=== PATIENT | female | born 1960 ===

== ENCOUNTER 2018-01-10 08:44 | Emergency (ER) | payer SELFPAY ==
[2018-01-10 10:23] VITALS: BP 98/65; PULSE 87; RESP 18; TEMP 97.8; O2SAT 95
--- NOTE | 2018-01-10 11:48 | C.PDOC ---
History Of Present Illness 57 y/o female presents to the ER complaining of left foot pain which has been present for the past 4 days. Patient states that she had a CAT scan done today. Patient denies any recent trauma. Of note, patient's left foot is covered in a orthopedic boot. Chief Complaint (Nursing): Lower Extremity Problem/Injury History Per: Patient History/Exam Limitations: no limitations Onset/Duration Of Symptoms: Days Current Symptoms Are (Timing): Still Present Severity: Moderate Past Medical History Reviewed: Historical Data, Nursing Documentation, Vital Signs Vital Signs: Last Vital Signs Temp 97.8 F 01/10/18 10:10 Pulse 87 01/10/18 10:10 Resp 18 01/10/18 10:10 BP 98/65 L 01/10/18 10:10 Pulse Ox 95 01/10/18 12:25 - Medical History PMH: Diabetes, Hypercholesterolemia Denies: Chronic Kidney Disease Other Surgeries: Hx of surgeries Family History: States: No Known Family Hx - Social History Hx Alcohol Use: No Hx Substance Use: No - Immunization History Hx Tetanus Toxoid Vaccination: No Hx Influenza Vaccination: No Hx Pneumococcal Vaccination: No Review Of Systems Except As Marked, All Systems Reviewed And Found Negative. Musculoskeletal: Positive for: Foot Pain (left foot pain) Neurological: Negative for: Weakness, Numbness Physical Exam - Physical Exam Appears: Non-toxic, No Acute Distress Skin: Normal Color, Warm Head: Atraumatic, Normacephalic Eye(s): bilateral: Normal Inspection Oral Mucosa: Moist Neck: Supple Chest: Symmetrical Extremity: No Normal ROM (decreased ROM in left foot), Other (Left Foot: 4th and 5th toes amputated,prominent lateral malleolus, well- healing surgical scar) Neurological/Psych: Oriented x3, Normal Speech, Normal Motor, Normal Sensation ED Course And Treatment O2 Sat by Pulse Oximetry: 95 (RA) Pulse Ox Interpretation: Normal Progress Note: Case discussed with podiatry resident. Podiatry Resident will see patient in office during the afternoon today. Patient understands that she has to follow up with Podiatry Resident. Disposition - Disposition Referrals: [facility] [Outside] [facility] [Outside] Disposition: HOME/ ROUTINE Disposition Time: 09:30 Condition: GOOD Additional Instructions: Thank you for letting us take care of you today. The emergency medical care you received today was directed at your acute symptoms. If you were prescribed any medication, please fill it and take as directed. It may take several days for your symptoms to resolve. Return to the Emergency Department if your symptoms worsen, do not improve, or if you have any other problems. Please contact your doctor or call one of the physicians/clinics you have been referred to that are listed on the Patient Visit Information form that is included in your discharge packet. Bring any paperwork you were given at discharge with you along with any medications you are taking to your follow up visit. Our treatment cannot replace ongoing medical care by a primary care provider (PCP) outside of the emergency department. Thank you for allowing the [facility] team to be part of your care today. Follow up with the clinic today at 12:30pm for a follow up appointment. Cam por dejarnos atenderlo hoy. La atencin mdica de emergencia que recibi hoy estaba dirigida a micaela sntomas agudos. Si le prescribieron algn medicamento, llnelo y tome segn las indicaciones. Micaela sntomas pueden tardar varios bardales en resolverse. Regrese al Departamento de Emergencia si micaela s ntomas empeoran, no mejoran o si tiene algn otro problema. Comunquese con mckeon mdico o llame a dev de los mdicos / clnicas a los que castanon sido referido que figura en el formulario de Informacin de visita del paciente que se incluye en mckeon paquete de gwendolyn. Traiga todos los documentos que recibi al momento del gwendolyn junto con los medicamentos que est tomando en mckeon visita de seguimiento. Nuestro tratamiento no puede reemplazar la atencin mdica en curso por parte de un proveedor de atencin primaria (PCP) fuera del departamento de emergencias. Cam por permitir que el equipo de [facility] sea parte de mckeon cuidado hoy. Uvaldo un seguimiento con la clnica hoy a las 12:30 p. M. Para camilo marlene de seguimiento. Instructions: Swollen Joint (ED) Forms: Gen Discharge Inst Mohawk Print Language: SINHALA - Clinical Impression Clinical Impression: Joint pain - Scribe Statement The provider has reviewed the documentation as recorded by the Scribe Anoop Hung Provider Attestation: All medical record entries made by the Scribe were at my direction and personally dictated by me. I have reviewed the chart and agree that the record accurately reflects my personal performance of the history, physical exam, medical decision making, and the department course for this patient. I have also personally directed, reviewed, and agree with the discharge instructions and disposition.
== END 2018-01-10 10:10 | disposition home or self-care (01) ==
LOC: C.ER 08:44
DX: M25.572 Pain in left ankle and joints of left foot (principal)

== ENCOUNTER 2018-07-03 13:06 | Emergency (ER) | payer SELFPAY ==
[2018-07-03 13:06] VITALS: BMI 25.4
[2018-07-03 13:21] VITALS: TEMP 98.5
[2018-07-03] MEDS ORDERED: Sodium Chloride 0.9% 1,000 ML IV ONE (14:04)
[2018-07-03 14:21] LABS: BASO # 0.1 K/uL (0.0-0.2); BASO % 0.7 % (0.0-2.0); EOS # 0.1 K/uL (0.0-0.7); EOS % 0.7 % (0.0-4.0); HEMOGLOBIN 10.9 g/dL (11.0-16.0); LYMPH # 2.4 K/uL (1.0-4.3); LYMPH % 31.1 % (20.0-40.0); MEAN CELL VOLUME 88.9 fL (81.0-99.0); MEAN CORPUSCULAR HEMOGLOBIN 29.7 pg (27.0-31.0); MEAN CORPUSCULAR HGB CONC 33.4 g/dL (33.0-37.0); MEAN PLATELET VOLUME 9.7 fL (7.2-11.7); MONO # 0.5 K/uL (0.0-0.8); MONO % 6.9 % (0.0-10.0); NEUT # 4.7 K/uL (1.8-7.0); NEUT % 60.6 % (50.0-75.0); RBC 3.66 Mil/uL (3.80-5.20); RED CELL DISTRIBUTION WIDTH 13.6 % (11.5-14.5); WHITE BLOOD COUNT 7.8 K/uL (4.8-10.8)
[2018-07-03 14:34] LABS: ALB/GLOB RATIO 1.2 (1.0-2.1); ALBUMIN 4.4 g/dL (3.5-5.0); ALT/SGPT 144 U/L (9-52); AST/SGOT 61 U/L (14-36); BLOOD UREA NITROGEN 29 mg/dL (7-17); CALCIUM 9.6 mg/dl (8.6-10.4); GFR AFRICAN-AMERICAN > 60; GFR NON-AFRICAN AMERICAN > 60
--- NOTE | 2018-07-03 14:34 | C.PDOC ---
History Of Present Illness 58 year old female presents to ED for evaluation of smelling and pain to right foot for the past week. As per daughter wound on the right foot started to drain 3 days ago. Denies fever, or associated symptoms. Time Seen by Provider: 07/03/18 13:45 Chief Complaint (Nursing): Lower Extremity Problem/Injury History Per: Patient History/Exam Limitations: no limitations Onset/Duration Of Symptoms: Days Current Symptoms Are (Timing): Still Present Recent travel outside of the [place]: No Additional History Per: Patient Past Medical History Reviewed: Historical Data, Nursing Documentation, Vital Signs Vital Signs: Last Vital Signs Temp 98.5 F 07/03/18 13:17 Pulse 83 07/03/18 17:23 Resp 18 07/03/18 17:23 BP 123/75 07/03/18 17:23 Pulse Ox 96 07/03/18 17:23 - Medical History PMH: Diabetes, HTN, Hypercholesterolemia Denies: Chronic Kidney Disease Family History: States: Unknown Family Hx - Social History Hx Alcohol Use: No Hx Substance Use: No - Immunization History Hx Tetanus Toxoid Vaccination: No Hx Influenza Vaccination: No Hx Pneumococcal Vaccination: No Review Of Systems Except As Marked, All Systems Reviewed And Found Negative. Constitutional: Negative for: Fever, Chills Musculoskeletal: Positive for: Foot Pain (right) Neurological: Negative for: Weakness, Numbness Physical Exam - Physical Exam Appears: Non-toxic, No Acute Distress (comfortable) Skin: Warm, Dry, Other (2 x 1cm of superficial wound to right foot with purulent drainage, surrounding swelling, erythema, and tactile warmth) Head: Atraumatic, Normacephalic Eye(s): bilateral: Normal Inspection Oral Mucosa: Moist Neck: Normal ROM, Supple Cardiovascular: Rhythm Regular, No Murmur Respiratory: Normal Breath Sounds, No Rales, No Rhonchi, No Wheezing Gastrointestinal/Abdominal: Soft, No Tenderness Extremity: Normal ROM, No Calf Tenderness, Capillary Refill (less than 2 seconds ), Deformity (deformity to left ankle from prior fracture; right foot deformity) , Other (amputation to right 4th and 5th metatarsals) Pulses: Left Dorsalis Pedis: Normal, Right Dorsalis Pedis: Normal Neurological/Psych: Oriented x3, Normal Speech ED Course And Treatment - Laboratory Results Result Diagrams: 07/03/18 14:15 07/03/18 14:15 O2 Sat by Pulse Oximetry: 100 (RA) Pulse Ox Interpretation: Normal Medical Decision Making Medical Decision Making: Impression: 58 year old female with draining right foot wound. Plan: * Blood work * Urinalysis * Right foot Xray * IV fluids 14:33: spoke to podiatry resident who will come evaluate patient at bedside. 1740 As per podiatry, patient to be given dose of antibiotics IV in ED and then follow up in the clinic next week. The resident debrided the wound, irrigated and dressed the wound. Disposition Counseled Patient/Family Regarding: Diagnosis, Need For Followup - Disposition Referrals: [facility] [Outside] [facility] [Other] Disposition: HOME/ ROUTINE Disposition Time: 17:15 Condition: STABLE Additional Instructions: ir a la clnica el lunmaria c para erik podologa DR Belle frank antibiticos dos veces al da Prescriptions: Cephalexin [cephalexin] 500 mg PO Q12 #14 cap Instructions: Diabetic Foot Care (ED) Print Language: BENGALI - POA Present On Arrival: Poor Glycemic Control - Clinical Impression Clinical Impression: Diabetic foot ulcer - 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 - Scribe Statement The provider has reviewed the documentation as recorded by the Shoshana Levy All medical record entries made by the Shoshana were at my direction and personally dictated by me. I have reviewed the chart and agree that the record accurately reflects my personal performance of the history, physical exam, medical decision making, and the department course for this patient. I have also personally directed, reviewed, and agree with the discharge instructions and disposition.
--- NOTE | 2018-07-03 14:55 | RAD ---
Date of service: 07/03/2018 PROCEDURE: Right Foot Radiographs. HISTORY: infected ulcer of foot COMPARISON: Bilateral feet radiographs 01/03/2018. FINDINGS: BONES: Prior trans metatarsal amputation at the 4th and 5th positions is reiterated with diffuse osteopenia suggesting osteoporosis. 2 orthopedic screws are unchanged at the distal tibia and fibula as well as transfixing the fibula to the talus. Gross degenerative changes are again seen throughout the midfoot and hindfoot with chronic fractures evident. No overt pattern to suggest osteomyelitis. Diffuse osteopenia suggests osteoporosis. JOINTS: As above. SOFT TISSUES: Deformity at the lateral mid and forefoot status post right 4th and 5th transmetatarsal amputations reiterated. Indentation at the plantar and lateral foot soft tissues may be postoperative or from the reported ulcer. No suspicious local erosive bony findings at this site. OTHER FINDINGS: None. IMPRESSION: No overt pattern to suggest osteomyelitis. Prior 4th and 5th transmetatarsal amputations reiterated with postop changes again seen throughout right ankle once again. Chronic fractures are again reiterated throughout the hindfoot with gross degenerative changes associated throughout the hindfoot and midfoot and joints.
--- NOTE | 2018-07-03 15:20 | CP.PCM.CON ---
History of Present Illness - History of Present Illness History of Present Illness: Podiatry Consult Note- Dr. Belle 58F with PMH of DM presents to the ED for worsening right foot pain and swelling. Reports noticing increase in pain and swelling for the last 3 days. Pain is worse with ambulating. Patient reports pain being localized to the right forefoot. Reports having pain to the left ankle as well. Report she has a left ankle fracture (for over 1 year) and will be undergoing surgery by Dr. Belle mid June pending medical clearance. Patient instructed to limit walking to the left ankle in CAM boot. Patient denies nausea, fever, shortness of breath, chest pains or chills. PMH: DM PSH: right foot 4th and 5th partial ray resection secondary to OM, C -section SH: denies smoking, drinking, or illicit drug use ALL: NKDA MEDS: see medication list FH: father- DM, mother- denies Past Patient History - Tetanus Immunizations Tetanus Immunization: Unknown - Past Medical History & Family History Past Medical History?: Yes - Past Social History Smoking Status: Never Smoked - CARDIAC Hx Hypercholesterolemia: Yes Hx Hypertension: Yes - PULMONARY Hx Respiratory Disorders: No - NEUROLOGICAL Hx Neurological Disorder: No - HEENT Hx HEENT Problems: No - RENAL Hx Chronic Kidney Disease: No - ENDOCRINE/METABOLIC Hx Endocrine Disorders: Yes Hx Diabetes Mellitus Type 2: Yes - HEMATOLOGICAL/ONCOLOGICAL Hx Blood Disorders: No - INTEGUMENTARY Hx Dermatological Problems: No - MUSCULOSKELETAL/RHEUMATOLOGICAL Hx Musculoskeletal Disorders: No Hx Falls: No - GASTROINTESTINAL Hx Gastrointestinal Disorders: No - GENITOURINARY/GYNECOLOGICAL Hx Genitourinary Disorders: No - PSYCHIATRIC Hx Substance Use: No - SURGICAL HISTORY Hx Surgeries: Yes Hx Orthopedic Surgery: Yes Other/Comment: rt foot sx. - ANESTHESIA Hx Anesthesia: Yes Meds Home Medications: Home Medication List Medication Instructions Recorded Confirmed Type Cephalexin [cephalexin] 500 mg PO Q12 #14 cap 07/03/18 Rx Allergies/Adverse Reactions: Allergies Allergy/AdvReac Type Severity Reaction Status Date / Time No Known Allergies Allergy Verified 07/03/18 13:17 Physical Exam - Constitutional Appears: Well, Non-toxic, No Acute Distress - Extremities Exam Extremities exam: Negative for: calf tenderness Additional comments: VASC: DP and PT 2/4 bilaterally, CFT < 3 seconds x 8 digits, temperature gradient bilaterally warm to warm, right foot swelling, left ankle swelling ORTHO: pain with palpation to 3rd plantar sub met pain right foot, right foot s/ p 4th and 5th partial ray amputation secondary to OM- completely healed, left ankle pain secondary to ankle fracture NEURO: gross and protective sensation intact DERM: callus with likely underlying ulceration noted to sub met 3 right foot, mild fluctanance appreciate, slight erythema, no streaking, serous drainage; callus noted to the lateral aspect of midfoot left lower extremity no open ulceration Results - Vital Signs Recent Vital Signs: Last Vital Signs Temp 98.5 F 07/03/18 13:17 Pulse 82 07/03/18 13:17 Resp 16 07/03/18 13:17 BP 126/78 07/03/18 13:17 Pulse Ox 100 07/03/18 14:58 - Labs Result Diagrams: 07/03/18 14:15 07/03/18 14:15 Labs: Laboratory Results - last 24 hr 07/03/18 07/03/18 14:15 14:15 WBC 7.8 RBC 3.66 L Hgb 10.9 L Hct 32.6 L MCV 88.9 MCH 29.7 MCHC 33.4 RDW 13.6 Plt Count 230 MPV 9.7 Neut % (Auto) 60.6 Lymph % (Auto) 31.1 [place] % (Auto) 6.9 Eos % (Auto) 0.7 Baso % (Auto) 0.7 Neut # (Auto) 4.7 Lymph # (Auto) 2.4 [place] # (Auto) 0.5 Eos # (Auto) 0.1 Baso # (Auto) 0.1 Sodium 139 Potassium 5.1 Chloride 104 Carbon Dioxide 26 Anion Gap 14 BUN 29 H Creatinine 0.6 L Est GFR ( Amer) > 60 Est GFR (Non-Af Amer) > 60 Random Glucose 253 H Calcium 9.6 Total Bilirubin 0.6 AST 61 H D ALT 144 H D Alkaline Phosphatase 348 H D Total Protein 8.0 Albumin 4.4 Globulin 3.6 Albumin/Globulin Ratio 1.2 Assessment & Plan - Assessment and Plan (Free Text) Assessment: 58F with PMH of DM with left sub met 3 callus with underlying ulceration and early cellulitic changes Plan: Patient seen and examined Discussed plan in detail with attending Dr. Belle X-rays reviewed- no OM, no gas emphysema appreciated Cleansed right foot with betadine Debrided right foot sub met 3 callus with a #15 blade and a pickup of all nonviable tissue at the level of dermis layer, revealing underlying ulceration. Post ulceration measures approximately 2 cm in diameter x .1 depth, does not probe to bone or tendon. Wound base is granular with serous drainge. Patient tolerated the procedure well without incident Cleansed ulceration with copious amounts of saline mixed betadine Wound culture taken of right foot Recommends outpatient abx Patient may WBAT to the heel to the right foot Continue to wear CAM walker to left lower extremity Patient to be NWB to the left lower extremity in CAM walker. Limit walking to the left lower extremity Educated patient on worsening signs and symptoms, and to seek help immediately if present Patient will follow up in podiatry clinic with Dr. Belle Wednesday Thank you for allowing us to participate in patient's care
[2018-07-03 15:52] LABS: URINE BILIRUBIN NEGATIVE (NEGATIVE); URINE BLOOD NEGATIVE (NEGATIVE); URINE CLARITY Clear (Clear); URINE COLOR Straw (YELLOW); URINE GLUCOSE (UA) 3+ mg/dL (Normal); URINE LEUKOCYTE ESTERASE NEG Leu/uL (Negative); URINE PROTEIN NEGATIVE (NEGATIVE); URINE UROBILINOGEN NORMAL mg/dL (0.2-1.0)
[2018-07-03] MEDS ORDERED: cefTRIAXone IV 1 gm in Dextros 50 ML IV ONE (16:39)
[2018-07-03] MEDS ORDERED: cefTRIAXone IV 1 gm in Dextros 50 ML IVPB ONE (16:45)
[2018-07-03 17:23] VITALS: BP 123/75; PULSE 83; RESP 18
[2018-07-03 17:36] VITALS: O2SAT 100
== END 2018-07-03 17:39 | disposition home or self-care (01) ==
LOC: C.ER 13:06
DX: E11.621 Type 2 diabetes mellitus with foot ulcer (principal); L97.519 Non-pressure chronic ulcer of other part of right foot with unspecified severity; I10 Essential (primary) hypertension; E78.00 Pure hypercholesterolemia, unspecified

== ENCOUNTER 2018-08-29 07:08 | Inpatient (IN) | payer MEDICAID, SELFPAY ==
[2018-08-25 09:20] VITALS: BMI 23.2
[2018-08-29] MEDS ORDERED: Clindamycin 600mg/50ml NS 0 MG/0 ML BAG IVPB ONE (08:02)
[2018-08-29] MEDS ORDERED: Clindamycin 600mg/50ml NS 600 MG/50 ML BAG IVPB ONE (08:03)
[2018-08-29] MEDS ORDERED: Midazolam 2 MG/2 ML VIAL ONE (08:18)
[2018-08-29] MEDS ORDERED: Propofol 10 mg/ml Inj (20 ML) ONE (08:18)
[2018-08-29] MEDS ORDERED: Morphine 4 MG/ML VIAL ONE (13:03)
[2018-08-29] MEDS ORDERED: Absorbable Gelatin Sponge Size 12-7 ONE (13:17)
[2018-08-29] MEDS ORDERED: Bupivacaine 0.25% 20 ML INJ IJ ONE ×2 (13:46→14:16)
[2018-08-29] MEDS ORDERED: HYDROmorphone 0.5 mg/0.5 ml ISec IVP PRN (13:52)
[2018-08-29] MEDS ORDERED: Oxycodone/Acetaminophen 5/325 mg Tab PO PRN ×2 (14:03)
--- NOTE | 2018-08-29 14:09 | PCM.SURG1 ---
Surgeon's Initial Post Op Note - Surgeon's Notes Surgeon: Dr. Belle Java Web Architect: Dr. Zak Forman PGY-3, Dr. Isaac Dominguez PGY-3. Dr. Shamika Orellana PGY-3 Type of Anesthesia: General Endo, Block Regional, Local Anesthesia Administered By: Dr. 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
[2018-08-29] MEDS ORDERED: Trimethobenzamide 200 mg/2 mL Inj IM STA (14:11)
--- NOTE | 2018-08-29 14:58 | PCM.ANESB2 ---
Popliteal Nerve Block - Popliteal Nerve Block Date of Procedure: 08/29/18 Anesthesiologist: Chelly Pre-Procedure Diagnosis: M19.072 Post-Procedure Diagnosis: M19.072 Procedure Performed: Popliteal Nerve Block Left - Procedure Popliteal Nerve Block: This procedure was explained to the patient that it is for post-operative pain management. Consent was obtained after a thorough discussion with the patient regarding the benefits and possible complications of local anesthetic block of the sciatic nerve at the popliteal level. The patient was brought to the operating room and standard monitors are applied. Time-out was held with the circulating nurse to confirm the correct surgery and the appropriate block. After applying oxygen by nasal cannula and administering IV Sedation, patient's operative leg was gently raised and supported and the groove in between the biceps femoris and vastus lateralis muscles was carefully palpated. The skin approximately 8cm above the popliteal crease was then marked. The ultrasound transducer was then applied to the posterior thigh approximately 8cm above the popliteal crease in the transverse plane and the sciatic nerve before its division was visualized lateral to the popliteal artery and in between the bicep femoris and semimembranosus/semitendinosus muscles. After identification, the lateral portion of the thigh was prepped with Betadine solution three times and Lidocaine 1% was injected subcutaneously for topical anesthesia. At this point, a # 21 gauge Stimuplex insulated 4 inch needle was inserted into pre-marked area and advanced in a perpendicular direction. After repeated negative aspiration, _20_cc of _0.25 % _bupivicaine__ was injected . Under ultrasound guidance the local anesthetics were observed surrounding sciatic nerve . The needle was removed intact and sterile dressing was applied. The patient tolerated the popliteal nerve block well with stable vital signs.
--- NOTE | 2018-08-29 16:13 | RAD ---
Date of service: 08/29/2018 PROCEDURE: Intraoperative Fluoroscopy. HISTORY: Left ankle fracture. NON-UNION FINDINGS: Fluoroscopic assistance was provided for left ankle open reduction internal fixation. Please refer to the operative report from JILLIAN Babcock.
--- NOTE | 2018-08-29 16:25 | RAD ---
Date of service: 08/29/2018 PROCEDURE: Left Ankle Radiographs. HISTORY: s/p left ankle surgery COMPARISON: 07/03/2018. FINDINGS: BONES: Hardware revision related to arthrodesis. No evidence of hardware failure. JOINTS: Normal. No osteoarthritis. Ankle mortise maintained. Talar dome intact SOFT TISSUES: Normal. OTHER FINDINGS: None. IMPRESSION: Satisfactory postoperative status.
[2018-08-29] MEDS ORDERED: Glucagon Recombinant 1 mg Inj IM PRN (17:43)
[2018-08-29] MEDS ORDERED: Dextrose 50% SYRINGE Inj (50 ml) IV PRN (17:43)
--- NOTE | 2018-08-29 17:56 | CP.PCM.HP ---
<Asher Martell - Last Filed: 08/29/18 20:29> History of Present Illness - History of Present Illness History of Present Illness: PGY2 Medicine H+P for Dr. Dickey (History obtained by chart review due to patient's clinical condition) Patient is a 58 female with a past medical history of arthritis, hyperlipidemia, hypertension and insulin-dependent diabetes who is s/p left ankle fusion. Patien t is currently post-op and unable to provide history due to anesthesia. Podiatry requested overnight observation. ROS unattainable due to to patient's clinical condition. PMD: Dr. Arroyo (per Podiatry team) PMH: arthritis, hyperlipidemia, hypertension and insulin-dependent diabetes PSH: left ankle fusion Present on Admission - Present on Admission Any Indicators Present on Admission: No Review of Systems - Review of Systems Systems not reviewed;Unavailable: Altered Mental Status (post-op) Past Patient History - Tetanus Immunizations Tetanus Immunization: Unknown - Past Medical History & Family History Past Medical History?: Yes - Past Social History Smoking Status: Never Smoked - CARDIAC Hx Hypercholesterolemia: Yes (no longer) Hx Hypertension: Yes (no longer) - PULMONARY Hx Respiratory Disorders: No - NEUROLOGICAL Hx Neurological Disorder: No - HEENT Hx HEENT Problems: No - RENAL Hx Chronic Kidney Disease: No - ENDOCRINE/METABOLIC Hx Endocrine Disorders: Yes Hx Diabetes Mellitus Type 2: Yes Hx Hypothyroidism: Yes - HEMATOLOGICAL/ONCOLOGICAL Hx Blood Disorders: Yes Hx Anemia: Yes Hx Blood Transfusions: Yes Hx Blood Transfusion Reaction: No - INTEGUMENTARY Hx Dermatological Problems: No - MUSCULOSKELETAL/RHEUMATOLOGICAL Hx Musculoskeletal Disorders: Yes Hx Arthritis: Yes Hx Falls: No Hx Fractures: Yes (right) - GASTROINTESTINAL Hx Gastrointestinal Disorders: No - GENITOURINARY/GYNECOLOGICAL Hx Genitourinary Disorders: No - PSYCHIATRIC Hx Psychophysiologic Disorder: No Hx Substance Use: No - SURGICAL HISTORY Hx Surgeries: Yes 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) Hx Open Reduction Internal Fixation: Yes (right ankle) - ANESTHESIA Hx Anesthesia: Yes Hx Anesthesia Reactions: Yes (nausea) Hx Malignant Hyperthermia: No Has any member of the family had a problem w/ anesthesia?: No Meds Allergies/Adverse Reactions: Allergies Allergy/AdvReac Type Severity Reaction Status Date / Time morphine Allergy Intermediate VOMITING Verified 08/29/18 19:58 cephalexin [From Keflex] Allergy Mild RASH Verified 08/08/18 18:43 acetaminophen [From Percocet] AdvReac Intermediate VOMITING Verified 08/29/18 19:58 oxycodone [From Percocet] AdvReac Intermediate VOMITING Verified 08/29/18 19:58 Physical Exam - Constitutional Appears: Other (Unarousable - post op) - Head Exam Head Exam: ATRAUMATIC, NORMOCEPHALIC - ENT Exam ENT Exam: Mucous Membranes Moist. absent: Mucous Membranes Dry - Respiratory Exam Respiratory Exam: Clear to Auscultation Bilateral, NORMAL BREATHING PATTERN. absent: Accessory Muscle Use, Rales, Rhonchi, Wheezes, Respiratory Distress - Cardiovascular Exam Cardiovascular Exam: REGULAR RHYTHM, +S1, +S2 - GI/Abdominal Exam GI & Abdominal Exam: Soft. absent: Distended, Firm, Guarding, Rigid, Tenderness - Extremities Exam Extremities exam: Negative for: calf tenderness, pedal edema Additional comments: Left ankle/lower extremity wrapped. - Back Exam Back exam: CVA tenderness (R) - Neurological Exam Neurological exam: Altered (post-op, has not fully recovered from anesthesia) - Skin Skin Exam: Dry, Warm Results - Vital Signs Recent Vital Signs: Last Vital Signs Temp 98 F 08/29/18 14:01 Pulse 89 08/29/18 16:00 Resp 10 L 08/29/18 16:00 BP 144/68 08/29/18 16:00 Pulse Ox 99 08/29/18 16:00 - Labs Labs: Laboratory Results - last 24 hr 08/29/18 08/29/18 07:55 14:06 POC Glucose (mg/dL) 136 H 172 H Assessment & Plan - Assessment and Plan (Free Text) Plan: s/p Left Ankle Fusion POD#0 Podiatry consulted, Dr. Belle * Requested overnight observation. * Patient underwent - arthrodesis of left ankle joint using plate and screws with bone allograft Continue to monitor Pain control NON-weight bearing activity Medications: * Percocet 1 tab q4h prn * Percocet 2 tab q4h prn * Zofran 4mg IVP q6h prn * Tylenol 650mg PO q6h prn Hypertension Continue Home Medication: * Enalapril Maleate 2.5mg PO daily * Aspirin 81mg PO daily Diabetes Inulin Sliding Scale Hypoglycemic Protocol Hypothyroidism Continue Home Medication: * Synthroid 75mcg PO daily DISPO: Will monitor patient overnight. Hopeful discharge tomorrow if cleared by podiatry. Case discussed with Dr. Keli Alvarezn PGY2 <Herman Dickey H - Last Filed: 08/30/18 07:37> Results - Vital Signs Recent Vital Signs: Last Vital Signs Temp 98.9 F 08/30/18 05:00 Pulse 109 H 08/30/18 00:00 Resp 20 08/30/18 00:00 BP 135/73 08/30/18 00:00 Pulse Ox 100 08/30/18 00:00 - Labs Result Diagrams: 08/30/18 06:55 Labs: Laboratory Results - last 24 hr 08/29/18 08/29/18 08/29/18 07:55 14:06 19:31 WBC RBC Hgb Hct MCV MCH MCHC RDW Plt Count MPV Neut % (Auto) Lymph % (Auto) [place] % (Auto) Eos % (Auto) Baso % (Auto) Neut # (Auto) Lymph # (Auto) [place] # (Auto) Eos # (Auto) Baso # (Auto) POC Glucose (mg/dL) 136 H 172 H 255 H 08/29/18 08/30/18 08/30/18 20:58 06:55 07:26 WBC 10.5 RBC 3.05 L Hgb 9.3 L Hct 26.8 L MCV 87.6 MCH 30.4 MCHC 34.6 RDW 12.9 Plt Count 223 MPV 9.2 Neut % (Auto) 76.3 H Lymph % (Auto) 14.4 L [place] % (Auto) 8.8 Eos % (Auto) 0.0 Baso % (Auto) 0.5 Neut # (Auto) 8.0 H Lymph # (Auto) 1.5 [place] # (Auto) 0.9 H Eos # (Auto) 0.0 Baso # (Auto) 0.0 POC Glucose (mg/dL) 247 H 266 H Attending/Attestation - Attestation I have personally seen and examined this patient.: Yes I have fully participated in the care of the patient.: Yes I have reviewed all pertinent clinical information: Yes Notes (Text): 08/30/18 07:33 Medical attending : Patient was seen and examined by me, agree with the above note by the resident. The patient had just recently come out of the OR and was in PACU when we saw her and sound asleep laura from anesthesia. Patient is S/P ankle fusion. Per discussion with the podiatry resident the patient should be non-weight bearing and can have lovenox as well Herman Dickey
[2018-08-29] MEDS: (Novolin R) Insulin Human Regular 100 units/ml vial SC SCH (22:10)
[2018-08-30] MEDS: Levothyroxine 75 MCG TAB PO SCH (06:47)
[2018-08-30 07:21] LABS: BASO % 0.5 % (0.0-2.0); HEMOGLOBIN 9.3 g/dL (11.0-16.0); LYMPH # 1.5 K/uL (1.0-4.3); LYMPH % 14.4 % (20.0-40.0); MEAN CELL VOLUME 87.6 fL (81.0-99.0); MEAN CORPUSCULAR HEMOGLOBIN 30.4 pg (27.0-31.0); MEAN CORPUSCULAR HGB CONC 34.6 g/dL (33.0-37.0); MEAN PLATELET VOLUME 9.2 fL (7.2-11.7); MONO # 0.9 K/uL (0.0-0.8); MONO % 8.8 % (0.0-10.0); NEUT % 76.3 % (50.0-75.0); RBC 3.05 Mil/uL (3.80-5.20); RED CELL DISTRIBUTION WIDTH 12.9 % (11.5-14.5); WHITE BLOOD COUNT 10.5 K/uL (4.8-10.8)
[2018-08-30 07:44] LABS: ALBUMIN 3.7 g/dL (3.5-5.0); ALT/SGPT 35 U/L (9-52); AST/SGOT 32 U/L (14-36); BLOOD UREA NITROGEN 14 mg/dL (7-17); CALCIUM 8.9 mg/dl (8.6-10.4); GFR NON-AFRICAN AMERICAN > 60
[2018-08-30] MEDS: (Novolin R) Insulin Human Regular 100 units/ml vial SC SCH ×4 (08:28→21:37)
[2018-08-30] MEDS: Pneumococcal 23-Valent Vaccine IM ONE ×2 (09:35→09:50)
--- NOTE | 2018-08-30 11:07 | CP.PCM.CON ---
History of Present Illness - History of Present Illness History of Present Illness: Podiatry - Dr. 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 Patient resting in bed at time of visit, NAD. Patient complains of left ankle pain along surgical site however improved since overnight, controlled with pain medications. Patient aware she will be working with physical therapy for transfer training for safe discharge home. Patient also c/o nausea and a headache and is requesting medications for alleviation of symptoms. Patient denies left calf pain, SOB, abd pain, chest pain, n/v/d, f/c. Review of Systems - Review of Systems All systems: reviewed and no additional remarkable complaints except (as per HPI) Past Patient History - Tetanus Immunizations Tetanus Immunization: Unknown - Past Medical History & Family History Past Medical History?: Yes - Past Social History Smoking Status: Never Smoked - CARDIAC Hx Hypercholesterolemia: Yes (no longer) Hx Hypertension: Yes (no longer) - PULMONARY Hx Respiratory Disorders: No - NEUROLOGICAL Hx Neurological Disorder: No - HEENT Hx HEENT Problems: No - RENAL Hx Chronic Kidney Disease: No - ENDOCRINE/METABOLIC Hx Endocrine Disorders: Yes Hx Diabetes Mellitus Type 2: Yes Hx Hypothyroidism: Yes - HEMATOLOGICAL/ONCOLOGICAL Hx Blood Disorders: Yes Hx Anemia: Yes Hx Blood Transfusions: Yes Hx Blood Transfusion Reaction: No - INTEGUMENTARY Hx Dermatological Problems: No - MUSCULOSKELETAL/RHEUMATOLOGICAL Hx Musculoskeletal Disorders: Yes Hx Arthritis: Yes Hx Falls: No Hx Fractures: Yes (right) - GASTROINTESTINAL Hx Gastrointestinal Disorders: No - GENITOURINARY/GYNECOLOGICAL Hx Genitourinary Disorders: No - PSYCHIATRIC Hx Psychophysiologic Disorder: No Hx Substance Use: No - SURGICAL HISTORY Hx Surgeries: Yes 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) Hx Open Reduction Internal Fixation: Yes (right ankle) - ANESTHESIA Hx Anesthesia: Yes Hx Anesthesia Reactions: Yes (nausea) Hx Malignant Hyperthermia: No Has any member of the family had a problem w/ anesthesia?: No Meds Allergies/Adverse Reactions: Allergies Allergy/AdvReac Type Severity Reaction Status Date / Time morphine Allergy Intermediate VOMITING Verified 08/29/18 19:58 cephalexin [From Keflex] Allergy Mild RASH Verified 08/08/18 18:43 acetaminophen [From Percocet] AdvReac Intermediate VOMITING Verified 08/29/18 19:58 oxycodone [From Percocet] AdvReac Intermediate VOMITING Verified 08/29/18 19:58 - Medications Medications: Current Medications Acetaminophen (Tylenol 325mg Tab) 650 mg PO Q6 PRN PRN Reason: Pain, Mild (1-3) Aspirin (Aspirin Chewable) 81 mg PO DAILY [facility] Last Admin: 08/30/18 09:34 Dose: 81 mg Dextrose (Dextrose 50% Inj) 0 ml IV STAT PRN; Protocol PRN Reason: Hypoglycemia Protocol Dextrose (Glutose 15) 0 gm PO ONCE PRN; Protocol PRN Reason: Hypoglycemia Protocol Enalapril Maleate (Vasotec) 2.5 mg PO DAILY [facility] Last Admin: 08/30/18 09:34 Dose: 2.5 mg Glucagon (Glucagen Diagnostic Kit) 0 mg IM STAT PRN; Protocol PRN Reason: Hypoglycemia Protocol Hydromorphone HCl (Dilaudid) 2 mg PO Q4 PRN PRN Reason: Pain, severe (8-10) Last Admin: 08/30/18 09:07 Dose: 2 mg Dextrose (Dextrose 5% In Water 1000 Ml) 1,000 mls @ 0 mls/hr IV .Q0M PRN; Pro tocol PRN Reason: Hypoglycemia Protocol Insulin Human Regular (Novolin R) 0 unit SC [facility]; Protocol Last Admin: 08/30/18 08:28 Dose: 6 units Levothyroxine Sodium (Synthroid) 75 mcg PO DAILY@0630 [facility] Last Admin: 08/30/18 06:47 Dose: 75 mcg Metoclopramide HCl (Reglan) 10 mg IVP DAILY@ONCE PRN PRN Reason: Nausea/Vomiting Last Admin: 08/29/18 19:31 Dose: 10 mg Ondansetron HCl (Zofran Inj) 4 mg IVP Q6 PRN PRN Reason: Nausea/Vomiting Last Admin: 08/30/18 03:40 Dose: 4 mg Physical Exam - Constitutional Appears: Well, Non-toxic, No Acute Distress - Extremities Exam Additional comments: LLE focused physical exam AO splint clean/dry/intact CFT to digits WNL x5 Digits cool to touch compared to contralateral side Light touch sensation intact to digits x5 Digital ROM present No pain upon calf squeeze - Neurological Exam Neurological exam: Alert, Oriented x3 - Psychiatric Exam Psychiatric exam: Normal Affect, Normal Mood Results - Vital Signs Recent Vital Signs: Last Vital Signs Temp 99.4 F 08/30/18 08:13 Pulse 106 H 08/30/18 08:13 Resp 20 08/30/18 08:13 BP 136/77 08/30/18 09:34 Pulse Ox 100 08/30/18 08:13 - Labs Result Diagrams: 08/30/18 06:55 08/30/18 06:55 Labs: Laboratory Results - last 24 hr 08/29/18 08/29/18 08/29/18 14:06 19:31 20:58 WBC RBC Hgb Hct MCV MCH MCHC RDW Plt Count MPV Neut % (Auto) Lymph % (Auto) [place] % (Auto) Eos % (Auto) Baso % (Auto) Neut # (Auto) Lymph # (Auto) [place] # (Auto) Eos # (Auto) Baso # (Auto) Sodium Potassium Chloride Carbon Dioxide Anion Gap BUN Creatinine Est GFR ( Amer) Est GFR (Non-Af Amer) POC Glucose (mg/dL) 172 H 255 H 247 H Random Glucose Calcium Total Bilirubin AST ALT Alkaline Phosphatase Total Protein Albumin Globulin Albumin/Globulin Ratio 08/30/18 08/30/18 08/30/18 06:55 06:55 07:26 WBC 10.5 RBC 3.05 L Hgb 9.3 L Hct 26.8 L MCV 87.6 MCH 30.4 MCHC 34.6 RDW 12.9 Plt Count 223 MPV 9.2 Neut % (Auto) 76.3 H Lymph % (Auto) 14.4 L [place] % (Auto) 8.8 Eos % (Auto) 0.0 Baso % (Auto) 0.5 Neut # (Auto) 8.0 H Lymph # (Auto) 1.5 [place] # (Auto) 0.9 H Eos # (Auto) 0.0 Baso # (Auto) 0.0 Sodium 137 Potassium 4.0 Chloride 98 Carbon Dioxide 27 Anion Gap 15 BUN 14 Creatinine 0.6 L Est GFR ( Amer) > 60 Est GFR (Non-Af Amer) > 60 POC Glucose (mg/dL) 266 H Random Glucose 260 H Calcium 8.9 Total Bilirubin 0.8 AST 32 ALT 35 Alkaline Phosphatase 155 H D Total Protein 7.2 Albumin 3.7 Globulin 3.5 Albumin/Globulin Ratio 1.0 Assessment & Plan - Assessment and Plan (Free Text) Assessment: 58F POD#1 arthrodesis of left ankle joint using plate and screws with bone allograft (DOS 08/29/18) Plan: Patient seen and evaluated Discussed with attending, Dr. Yoshi Ignacioebmercedez, WBC 1.5 AO splint left intact - will continue to monitor LLE Pain control - Dilaudid 2mg PO PT/OT ordered for transfer training with standard walker -If patient tolerates PT transfer training, recommend dc home Patient to follow up with Dr. Belle in the podiatry clinic next week 09/05/18 Podiatry will continue to follow
--- NOTE | 2018-08-30 11:38 | CP.PCM.DIS ---
Provider - Provider Attending physician: Herman Dickey [facility] Course - Lab Results Lab Results: Most Recent Lab Values WBC 10.5 K/uL (4.8-10.8) 08/30/18 06:55 RBC 3.05 Mil/uL (3.80-5.20) L 08/30/18 06:55 Hgb 9.3 g/dL (11.0-16.0) L 08/30/18 06:55 Hct 26.8 % (34.0-47.0) L 08/30/18 06:55 MCV 87.6 fL (81.0-99.0) 08/30/18 06:55 MCH 30.4 pg (27.0-31.0) 08/30/18 06:55 MCHC 34.6 g/dL (33.0-37.0) 08/30/18 06:55 RDW 12.9 % (11.5-14.5) 08/30/18 06:55 Plt Count 223 K/uL (130-400) 08/30/18 06:55 MPV 9.2 fL (7.2-11.7) 08/30/18 06:55 Neut % (Auto) 76.3 % (50.0-75.0) H 08/30/18 06:55 Lymph % (Auto) 14.4 % (20.0-40.0) L 08/30/18 06:55 [place] % (Auto) 8.8 % (0.0-10.0) 08/30/18 06:55 Eos % (Auto) 0.0 % (0.0-4.0) 08/30/18 06:55 Baso % (Auto) 0.5 % (0.0-2.0) 08/30/18 06:55 Neut # (Auto) 8.0 K/uL (1.8-7.0) H 08/30/18 06:55 Lymph # (Auto) 1.5 K/uL (1.0-4.3) 08/30/18 06:55 [place] # (Auto) 0.9 K/uL (0.0-0.8) H 08/30/18 06:55 Eos # (Auto) 0.0 K/uL (0.0-0.7) 08/30/18 06:55 Baso # (Auto) 0.0 K/uL (0.0-0.2) 08/30/18 06:55 Sodium 137 mmol/L (132-148) 08/30/18 06:55 Potassium 4.0 mmol/L (3.6-5.2) 08/30/18 06:55 Chloride 98 mmol/L (98-107) 08/30/18 06:55 Carbon Dioxide 27 mmol/L (22-30) 08/30/18 06:55 Anion Gap 15 (10-20) 08/30/18 06:55 BUN 14 mg/dL (7-17) 08/30/18 06:55 Creatinine 0.6 mg/dL (0.7-1.2) L 08/30/18 06:55 Est GFR ( Amer) > 60 08/30/18 06:55 Est GFR (Non-Af Amer) > 60 08/30/18 06:55 POC Glucose (mg/dL) 212 mg/dL (65-110) H 08/30/18 10:58 Random Glucose 260 mg/dL (65-105) H 08/30/18 06:55 Calcium 8.9 mg/dl (8.6-10.4) 08/30/18 06:55 Total Bilirubin 0.8 mg/dL (0.2-1.3) 08/30/18 06:55 AST 32 U/L (14-36) 08/30/18 06:55 ALT 35 U/L (9-52) 08/30/18 06:55 Alkaline Phosphatase 155 U/L (38-126) H D 08/30/18 06:55 Total Protein 7.2 g/dL (6.3-8.3) 08/30/18 06:55 Albumin 3.7 g/dL (3.5-5.0) 08/30/18 06:55 Globulin 3.5 gm/dL (2.2-3.9) 08/30/18 06:55 Albumin/Globulin Ratio 1.0 (1.0-2.1) 08/30/18 06:55 Discharge Exam - Head Exam Head Exam: ATRAUMATIC, NORMOCEPHALIC Discharge Plan - Follow Up Plan Condition: GOOD Disposition: HOME/ ROUTINE
[2018-08-30] MEDS ORDERED: Sodium Chloride 0.9% 250 ML IV ONE (16:23)
--- NOTE | 2018-08-30 19:07 | CP.PCM.PN ---
<Fran Jenkins - Last Filed: 08/30/18 19:12> Subjective - Date & Time of Evaluation Date of Evaluation: 08/30/18 Time of Evaluation: 18:48 - Subjective Subjective: Fran Jenkins PGY-1, Medicine progress note for Hospitalist (Dr. Dickey) Pt was seen and examined at bedside. Pt is POD 1 s/p arthrodesis of left ankle joint using plate and screws with bone allograft by Dr. Plascencia. She is complaining of epigastric abdominal pain, nausea, with about three episodes of vomiting described as clear phelgm, nonbloody nonbilious. Pt also reports worsening dizziness, with blurry vision and a headache. Blurry vision is described as inability to see clearly, with double vision at times. She continues to have left lower leg pain s/p surgery. Pt denied fever, chest pain, sob, hemoptysis, blood in the vomit, hematochezia, melena, urinary complaints. Objective - Vital Signs/Intake and Output Vital Signs (last 24 hours): Temp Pulse Resp BP Pulse Ox 99.4 F 101 H 20 129/74 100 08/30/18 15:00 08/30/18 17:06 08/30/18 15:00 08/30/18 17:06 08/30/18 15:00 Intake and Output: 08/30/18 08/30/18 06:59 18:59 Intake Total 15 120 Output Total 400 350 Balance -385 -230 - Medications Medications: Current Medications Acetaminophen (Tylenol 325mg Tab) 650 mg PO Q6 PRN PRN Reason: Pain, Mild (1-3) Aspirin (Aspirin Chewable) 81 mg PO DAILY [facility] Last Admin: 08/30/18 09:34 Dose: 81 mg Dextrose (Dextrose 50% Inj) 0 ml IV STAT PRN; Protocol PRN Reason: Hypoglycemia Protocol Dextrose (Glutose 15) 0 gm PO ONCE PRN; Protocol PRN Reason: Hypoglycemia Protocol Enalapril Maleate (Vasotec) 2.5 mg PO DAILY [facility] Last Admin: 08/30/18 09:34 Dose: 2.5 mg Glucagon (Glucagen Diagnostic Kit) 0 mg IM STAT PRN; Protocol PRN Reason: Hypoglycemia Protocol Hydromorphone HCl (Dilaudid) 2 mg PO Q4 PRN PRN Reason: Pain, severe (8-10) Last Admin: 08/30/18 09:07 Dose: 2 mg Dextrose (Dextrose 5% In Water 1000 Ml) 1,000 mls @ 0 mls/hr IV .Q0M PRN; Protocol PRN Reason: Hypoglycemia Protocol Insulin Human Regular (Novolin R) 0 unit SC ACHS [facility]; Protocol Last Admin: 08/30/18 16:38 Dose: Not Given Levothyroxine Sodium (Synthroid) 75 mcg PO DAILY@0630 [facility] Last Admin: 08/30/18 06:47 Dose: 75 mcg Metoclopramide HCl (Reglan) 10 mg IVP DAILY@ONCE PRN PRN Reason: Nausea/Vomiting Last Admin: 08/29/18 19:31 Dose: 10 mg Ondansetron HCl (Zofran Inj) 4 mg IVP Q6 PRN PRN Reason: Nausea/Vomiting Last Admin: 08/30/18 12:19 Dose: 4 mg - Labs Labs: 08/30/18 06:55 08/30/18 06:55 - Constitutional Appears: Non-toxic, No Acute Distress - Head Exam Head Exam: NORMAL INSPECTION, NORMOCEPHALIC - Eye Exam Eye Exam: EOMI, Normal appearance - ENT Exam ENT Exam: Mucous Membranes Moist - Neck Exam Neck Exam: Normal Inspection - Respiratory Exam Respiratory Exam: Clear to Ausculation Bilateral, NORMAL BREATHING PATTERN. absent: Decreased Breath Sounds, Rales, Rhonchi, Wheezes, Respiratory Distress - Cardiovascular Exam Cardiovascular Exam: Tachycardia, REGULAR RHYTHM, +S1, +S2 - GI/Abdominal Exam GI & Abdominal Exam: Soft, Tenderness (mild diffuse abdominal tenderness), Normal Bowel Sounds - Extremities Exam Extremities Exam: absent: Calf Tenderness, Pedal Edema Additional comments: LLE focused physical exam AO splint clean/dry/intact; no evidence of bleeding Digits cool to touch compared to contralateral side Light touch sensation intact to digits x5 Digital ROM present - Back Exam Back Exam: NORMAL INSPECTION, paraspinal tenderness (lumbar parvertebral tenderness ; left worse than right) - Neurological Exam Neurological Exam: Alert, Awake, Oriented x3 - Psychiatric Exam Psychiatric exam: Normal Affect, Normal Mood - Skin Skin Exam: Dry, Normal Color, Warm Assessment and Plan - Assessment and Plan (Free Text) Assessment: This is a Patient is a 58 female with a past medical history of arthritis, hyperlipidemia, hypertension and insulin-dependent diabetes who is s/p left ankle fusion. Podiatry requested overnight observation. Pt noted to be hypotensive at low 90s over 50s, with blurry vision and abdominal pain. Plan: S/p Left Ankle Fusion POD#1 Podiatry consulted, Dr. Belle - Requested overnight observation. - Patient underwent - arthrodesis of left ankle joint using plate and screws with bone allograft - Continue to monitor - Pain control - dilaudid 2 mg PO q4h PRN pain - Zofran 4mg IVP q6h prn nausea - NON-weight bearing activity Symptomatic hypertension - (low 90s SBP/50s DBP, tachycardic in the low 100s) - pt has blurry vision and headache; likely due to volume status - FSBS has been in the 200s - 250 cc saline bolus given with increase of BP to 129/74 - orthostatic BPs: - 109/65 lying, 105/62 sitting - pt unable to tolerate standing due to dizziness - troponin x1 is negative, will trend x2 q6h - EKG is NSR, no acute STTW changes as read by me - f/u head ct - continue to monitor Hx of iron deficiency anemia - pt states that she hasn't taken her iron pill in a few days - Hgb is 9.3; baseline is high 10s/low 11s - NS at 100 mL/hr - Ferrlecit 125 mg IVPB x 1 - f/u am labs Hx of Hypertension Continue Home Medication: - will hold home Enalapril Maleate 2.5mg until hypotension and dizziness resolves - Aspirin 81mg PO daily Hx of IDDM - ISS medium - accucheck ACHS - Hypoglycemic Protocol Hx of hypothyroidism Continue Home Medication: * Synthroid 75mcg PO daily Case discussed and reviewed with attending physician, Dr. Keli Jenkins PGY-1 <Herman Dickey H - Last Filed: 08/31/18 07:31> Objective - Vital Signs/Intake and Output Vital Signs (last 24 hours): Temp Pulse Resp BP Pulse Ox 100.8 F H 95 H 20 108/66 100 08/30/18 23:56 08/30/18 23:16 08/30/18 23:16 08/30/18 23:16 08/30/18 23:16 - Medications Medications: Current Medications Acetaminophen (Tylenol 325mg Tab) 650 mg PO Q6 PRN PRN Reason: Pain, Mild (1-3) Last Admin: 08/30/18 23:56 Dose: 650 mg Aspirin (Aspirin Chewable) 81 mg PO DAILY [facility] Last Admin: 08/30/18 09:34 Dose: 81 mg Dextrose (Dextrose 50% Inj) 0 ml IV STAT PRN; Protocol PRN Reason: Hypoglycemia Protocol Dextrose (Glutose 15) 0 gm PO ONCE PRN; Protocol PRN Reason: Hypoglycemia Protocol Enalapril Maleate (Vasotec) 2.5 mg PO DAILY [facility] Last Admin: 08/30/18 09:34 Dose: 2.5 mg Ferric Sodium Gluconate Complex (Ferrlecit) 125 mg IVPB ONCE ONE Stop: 08/31/18 19:06 Glucagon (Glucagen Diagnostic Kit) 0 mg IM STAT PRN; Protocol PRN Reason: Hypoglycemia Protocol Hydromorphone HCl (Dilaudid) 2 mg PO Q4 PRN PRN Reason: Pain, severe (8-10) Last Admin: 08/31/18 06:00 Dose: 2 mg Dextrose (Dextrose 5% In Water 1000 Ml) 1,000 mls @ 0 mls/hr IV .Q0M PRN; Protocol PRN Reason: Hypoglycemia Protocol Sodium Chloride (Sodium Chloride 0.9%) 1,000 mls @ 100 mls/hr IV .Q10H [facility] Last Admin: 08/31/18 06:01 Dose: 100 mls/hr Insulin Human Regular (Novolin R) 0 unit SC ACHS [facility]; Protocol Last Admin: 08/30/18 21:37 Dose: Not Given Levothyroxine Sodium (Synthroid) 75 mcg PO DAILY@0630 [facility] Last Admin: 08/31/18 06:01 Dose: 75 mcg Metoclopramide HCl (Reglan) 10 mg IVP DAILY@ONCE PRN PRN Reason: Nausea/Vomiting Last Admin: 08/29/18 19:31 Dose: 10 mg Ondansetron HCl (Zofran Inj) 4 mg IVP Q6 PRN PRN Reason: Nausea/Vomiting Last Admin: 08/30/18 12:19 Dose: 4 mg - Labs Labs: 08/31/18 07:17 08/30/18 06:55 Attending/Attestation - Attestation I have personally seen and examined this patient.: Yes I have fully participated in the care of the patient.: Yes I have reviewed all pertinent clinical information, including history, physical exam and plan: Yes Notes (Text): Medical attending: Patient was seen and examined by me, right reviewed the above note by the medical office asst and agree with the above note. Earlier in the day we did consider discharging the patient however we're later notified that she continues to have ongoing nausea and vague abdominal area tenderness as well as dizziness. Because of the history of diabetes, we did recheck an EKG as well as an additional troponin. Her blood sugars were stable. Will also get a CT scan of the head as well. The blood pressure was in the mid 90s systolic, medical office asst did give small fluid bolus I agree with this. Will also check orthostatic as well. From what I understand the patient at home normally uses a wheelchair. She was earlier evaluated by PT/OT and per their notes she does do okay from a wheelchair to bed transfers. Thank you very much Herman Dickey
[2018-08-30] MEDS: Sodium Chloride 0.9% 1,000 ML IV SCH (20:09)
[2018-08-31] MEDS: Levothyroxine 75 MCG TAB PO SCH (06:01)
[2018-08-31] MEDS: Sodium Chloride 0.9% 1,000 ML IV SCH ×3 (06:01→19:36)
--- NOTE | 2018-08-31 06:48 | CT ---
Date of service: 08/30/2018 PROCEDURE: CT HEAD WITHOUT CONTRAST. HISTORY: dizziness, blurry vision COMPARISON: None available. TECHNIQUE: Axial computed tomography images were obtained through the head/brain without intravenous contrast. Radiation dose: Total exam DLP = 1074 mGy-cm. This CT exam was performed using one or more of the following dose reduction techniques: Automated exposure control, adjustment of the mA and/or kV according to patient size, and/or use of iterative reconstruction technique. FINDINGS: HEMORRHAGE: No intracranial hemorrhage. BRAIN: No mass effect or edema. Scattered focal lucencies in the subcortical and periventricular white matter suggestive for chronic microvascular ischemic change. Basal ganglia calcifications. VENTRICLES: Unremarkable. No hydrocephalus. CALVARIUM: Unremarkable. PARANASAL SINUSES: Unremarkable as visualized. No significant inflammatory changes. MASTOID AIR CELLS: Unremarkable as visualized. No inflammatory changes. OTHER FINDINGS: None. IMPRESSION: No acute intracranial abnormality. Chronic microvascular ischemic changes. If symptoms persists, consider correlation with MRI. These findings were preliminarily reported by Dr. Jonel Lerma from [facility] rad at 8:14 p.m. on 08/30/2018.
[2018-08-31 07:26] LABS: BASO % 0.4 % (0.0-2.0); EOS % 0.1 % (0.0-4.0); HEMOGLOBIN 8.2 g/dL (11.0-16.0); LYMPH # 2.3 K/uL (1.0-4.3); LYMPH % 22.5 % (20.0-40.0); MEAN CELL VOLUME 89.1 fL (81.0-99.0); MEAN CORPUSCULAR HEMOGLOBIN 30.4 pg (27.0-31.0); MEAN CORPUSCULAR HGB CONC 34.2 g/dL (33.0-37.0); MONO # 1.2 K/uL (0.0-0.8); NEUT # 6.6 K/uL (1.8-7.0); RBC 2.7 Mil/uL (3.80-5.20); WHITE BLOOD COUNT 10.1 K/uL (4.8-10.8)
[2018-08-31 08:20] LABS: ALB/GLOB RATIO 0.9 (1.0-2.1); ALBUMIN 3.2 g/dL (3.5-5.0); ALT/SGPT 25 U/L (9-52); AST/SGOT 28 U/L (14-36); BLOOD UREA NITROGEN 16 mg/dL (7-17); CALCIUM 8.5 mg/dl (8.6-10.4); GFR NON-AFRICAN AMERICAN > 60
[2018-08-31] MEDS: (Novolin R) Insulin Human Regular 100 units/ml vial SC SCH ×4 (08:24→21:57)
[2018-08-31] MEDS ORDERED: Ferric Sodium Gluconat Complex 62.5 mg/5 ml Vial IVPB ONE ×2 (09:29→19:05)
[2018-08-31] MEDS ORDERED: Iodixanol 320 MG/ML 100 ML BOTTLE IV ONE (09:52)
[2018-08-31] MEDS: Ferric Sodium Gluconat Complex 125 MG in Sodium Chloride 0.9% 100 ML IVPB SCH (12:20)
[2018-08-31] MEDS: Enoxaparin 40 mg Syringe SC SCH (12:25)
--- NOTE | 2018-08-31 13:16 | CARD ---
APPROVED REPORT Date of service: 08/30/2018 EKG Measurement Heart [id number] <Conclusion> Normal sinus rhythm Normal ECG
--- NOTE | 2018-08-31 14:49 | CP.PCM.PN ---
Subjective - Date & Time of Evaluation Date of Evaluation: 08/31/18 Time of Evaluation: 10:00 - Subjective Subjective: Podiatry - Dr. Belle 58 year old female patient seen and evaluated at bedside this AM POD#2 left ankle joint arthrodesis (DOS 08/29/18). Patient OOB with occupational therapy at bedside. Patient reports left ankle pain has decreased since yesterday, controlled via medications. Per PT/OT, patient able to tolerate transfers NWB LLE sit/stand well w/o issues. Patient also complains of persistent headache, dizziness, and nausea and admits to 6 episodes of vomiting; also c/o abdominal pain. Objective - Vital Signs/Intake and Output Vital Signs (last 24 hours): Temp Pulse Resp BP Pulse Ox 99.2 F 100 H 20 183/89 H 97 08/31/18 08:00 08/31/18 08:00 08/31/18 08:00 08/31/18 08:00 08/31/18 08:00 Intake and Output: 08/31/18 08/31/18 06:59 18:59 Intake Total 1040 Balance 1040 - Medications Medications: Current Medications Acetaminophen (Tylenol 325mg Tab) 650 mg PO Q6 PRN PRN Reason: Pain, Mild (1-3) Last Admin: 08/30/18 23:56 Dose: 650 mg Aspirin (Aspirin Chewable) 81 mg PO DAILY [facility] Last Admin: 08/31/18 10:49 Dose: 81 mg Dextrose (Dextrose 50% Inj) 0 ml IV STAT PRN; Protocol PRN Reason: Hypoglycemia Protocol Dextrose (Glutose 15) 0 gm PO ONCE PRN; Protocol PRN Reason: Hypoglycemia Protocol Enalapril Maleate (Vasotec) 2.5 mg PO DAILY [facility] Last Admin: 08/30/18 09:34 Dose: 2.5 mg Enoxaparin Sodium (Lovenox) 40 mg SC DAILY [facility] Last Admin: 08/31/18 12:25 Dose: 40 mg Glucagon (Glucagen Diagnostic Kit) 0 mg IM STAT PRN; Protocol PRN Reason: Hypoglycemia Protocol Dextrose (Dextrose 5% In Water 1000 Ml) 1,000 mls @ 0 mls/hr IV .Q0M PRN; Protocol PRN Reason: Hypoglycemia Protocol Sodium Chloride (Sodium Chloride 0.9%) 1,000 mls @ 100 mls/hr IV .Q10H [facility] Last Admin: 08/31/18 06:01 Dose: 100 mls/hr Ferric Sodium Gluconate Complex 125 mg/ Sodium Chloride 110 mls @ 110 mls/hr IVPB DAILY [facility] Stop: 09/08/18 11:01 Last Admin: 08/31/18 12:20 Dose: 110 mls/hr Insulin Human Regular (Novolin R) 0 unit SC ACHS [facility]; Protocol Last Admin: 08/31/18 12:18 Dose: 4 units Levothyroxine Sodium (Synthroid) 75 mcg PO DAILY@0630 [facility] Last Admin: 08/31/18 06:01 Dose: 75 mcg Metoclopramide HCl (Reglan) 10 mg IVP DAILY@ONCE PRN PRN Reason: Nausea/Vomiting Last Admin: 08/31/18 08:24 Dose: 10 mg Ondansetron HCl (Zofran Inj) 4 mg IVP Q6 PRN PRN Reason: Nausea/Vomiting Last Admin: 08/30/18 12:19 Dose: 4 mg - Labs Labs: 08/31/18 07:17 08/31/18 07:17 - Constitutional Appears: Non-toxic - Extremities Exam Additional comments: LLE focused physical exam AO splint clean/dry/intact VASC: DP and PT pulses palpable 1/4. Temperature gradient warm to warm b/l, digits warm to touch compared to contralateral side. CFT <3 seconds to all digits x5. Moderate non-pitting edema present. NEURO: Gross and protective pedal sensation diminished. Light touch sensation intact to digits x5 DERM: Linear surgical incision noted to anterior ankle joint appears well- coapted with sutures intact and no wound dehiscence present; no active bleeding present; serous bullae present along entire incision; no hematoma present; ecchymosis noted periwound; ecchymosis noted along medial calcaneus. ORTHO: MMT deferred secondary to ankle ORIF; tenderness to palpation along incision; digital ROM present. No pain upon calf squeeze - Neurological Exam Neurological Exam: Alert, Awake, Oriented x3 - Psychiatric Exam Psychiatric exam: Anxious Assessment and Plan - Assessment and Plan (Free Text) Assessment: 58F POD#2 arthrodesis of left ankle joint using plate and screws with bone allograft (DOS 08/29/18) Plan: Patient seen and evaluated Discussed with attending, Dr. Belle Tmax 100.8 overnight, WBC 10.1 LLE dressing changed - bullae lanced, will continue to monitor AO splint reapplied Pain control - Tylenol 650mg, Dilaudid 2mg PO Continue PT/OT Activity: NWB LLE Discharge planning per primary team -[facility] WNL, EKG NSR, f/u CXR, f/u CT A/P Patient to follow up with Dr. Belle in the podiatry clinic next week 09/05/18 Podiatry will continue to follow
--- NOTE | 2018-08-31 14:50 | CT ---
Date of service: 08/31/2018 PROCEDURE: CT Abdomen and Pelvis with contrast HISTORY: abdominal pain COMPARISON: None available. TECHNIQUE: Contrast dose: 100 cc Visipaque 320 Radiation dose: Total exam DLP = 470.75 mGy-cm. This CT exam was performed using one or more of the following dose reduction techniques: Automated exposure control, adjustment of the mA and/or kV according to patient size, and/or use of iterative reconstruction technique. FINDINGS: LOWER THORAX: No visible consolidation, pleural effusion, or pneumothorax. LIVER: Unremarkable. GALLBLADDER AND BILE DUCTS: Unremarkable. PANCREAS: Unremarkable. SPLEEN: Unremarkable. ADRENALS: Unremarkable. KIDNEYS AND URETERS: Subtle regions of scarring involving the right upper and right lower poles. No hydronephrosis. No obstructing calculus. VASCULATURE: Dense atherosclerotic calcifications. No aortic aneurysm. BOWEL: Stomach is nondistended. Lack of oral contrast limits evaluation for bowel pathology. Bowel loops appear within normal limits of caliber without evidence of obstruction. Mild to moderate constipation. APPENDIX: The appendix appears within normal limits of caliber. No secondary signs of acute appendicitis. PERITONEUM: No significant free fluid. No definite free air. LYMPH NODES: No bulky adenopathy identified. BLADDER: Mildly thick-walled urinary bladder with subtle inflammatory changes anteriorly; correlate with urinalysis for possibility of cystitis. REPRODUCTIVE: Uterus is present. BONES: No acute osseous abnormality is detected. OTHER FINDINGS: Small fat containing umbilical hernia. IMPRESSION: Mildly thick-walled urinary bladder with subtle inflammatory changes anteriorly; correlate with urinalysis for possibility of cystitis. Subtle regions of renal scarring involving the right upper and right lower poles. Correlate for history of pyelonephritis. Mild to moderate constipation. Additional findings as above.
--- NOTE | 2018-08-31 17:00 | RAD ---
Date of service: 08/31/2018 HISTORY: post op atelectasis? COMPARISON: 06/15/2018 FINDINGS: LUNGS: No active pulmonary disease. PLEURA: No significant pleural effusion identified, no pneumothorax apparent. CARDIOVASCULAR: Normal. OSSEOUS STRUCTURES: No significant abnormalities. VISUALIZED UPPER ABDOMEN: Normal. OTHER FINDINGS: None. IMPRESSION: No active disease. No significant interval change compared to the prior examination(s).
[2018-08-31 17:29] LABS: SQUAMOUS EPITHIAL 8 /hpf (0-5); URINE BACTERIA OCC (<OCC); URINE BILIRUBIN NEGATIVE (NEGATIVE); URINE BLOOD 1+ (NEGATIVE); URINE CLARITY Clear (Clear); URINE COLOR Yellow (YELLOW); URINE GLUCOSE (UA) 1+ mg/dL (Normal); URINE LEUKOCYTE ESTERASE TRACE Leu/uL (Negative); URINE PROTEIN 1+ mg/dL (NEGATIVE); URINE UROBILINOGEN NORMAL mg/dL (0.2-1.0)
[2018-08-31] MEDS ORDERED: Ciprofloxacin 200mg/100ml D5W 100 ML IVPB SCH ×2 (17:45→18:00)
--- NOTE | 2018-08-31 20:07 | CP.PCM.PN ---
<Fran Jenkins - Last Filed: 08/31/18 20:24> Subjective - Date & Time of Evaluation Date of Evaluation: 08/31/18 Time of Evaluation: 09:30 - Subjective Subjective: Fran Jenkins PGY-1, Medicine progress note Pt was seen and examined at bedside. Pt is POD 2 s/p arthrodesis of left ankle joint using plate and screws with bone allograft by Dr. Belle. Pt had a fever (tmax 100.8) overnight and chills today, which was controlled by Tylenol. She is complaining of diffuse abdominal pain, nausea, with a couple of episode of vo miting clear phelgm, food particles, nonbloody nonbilious earlier today. She still has a mild headache with blurry vision and dizziness, but states that it is better than yesterday. Pt denied fever, chest pain, sob, hemoptysis, blood in the vomit, hematochezia, melena, urinary complaints. She continues to have left lower leg pain s/p surgery. Pt reports that she has not bene passing gas for the past 2 days, and has not had a bowel movement. Objective - Vital Signs/Intake and Output Vital Signs (last 24 hours): Temp Pulse Resp BP Pulse Ox 98.6 F 88 18 108/69 96 08/31/18 19:31 08/31/18 19:31 08/31/18 19:31 08/31/18 19:31 08/31/18 19:31 Intake and Output: 08/31/18 09/01/18 18:59 06:59 Intake Total 1960 Balance 1960 - Medications Medications: Current Medications Acetaminophen (Tylenol 325mg Tab) 650 mg PO Q6 PRN PRN Reason: Pain, Mild (1-3) Last Admin: 08/31/18 17:18 Dose: 650 mg Aspirin (Aspirin Chewable) 81 mg PO DAILY [facility] Last Admin: 08/31/18 10:49 Dose: 81 mg Dextrose (Dextrose 50% Inj) 0 ml IV STAT PRN; Protocol PRN Reason: Hypoglycemia Protocol Dextrose (Glutose 15) 0 gm PO ONCE PRN; Protocol PRN Reason: Hypoglycemia Protocol Enalapril Maleate (Vasotec) 2.5 mg PO DAILY [facility] Last Admin: 08/30/18 09:34 Dose: 2.5 mg Enoxaparin Sodium (Lovenox) 40 mg SC DAILY [facility] Last Admin: 08/31/18 12:25 Dose: 40 mg Glucagon (Glucagen Diagnostic Kit) 0 mg IM STAT PRN; Protocol PRN Reason: Hypoglycemia Protocol Dextrose (Dextrose 5% In Water 1000 Ml) 1,000 mls @ 0 mls/hr IV .Q0M PRN; Protocol PRN Reason: Hypoglycemia Protocol Sodium Chloride (Sodium Chloride 0.9%) 1,000 mls @ 100 mls/hr IV .Q10H [facility] Last Admin: 08/31/18 19:36 Dose: 100 mls/hr Ferric Sodium Gluconate Complex 125 mg/ Sodium Chloride 110 mls @ 110 mls/hr IVPB DAILY [facility] Stop: 09/08/18 11:01 Last Admin: 08/31/18 12:20 Dose: 110 mls/hr Ciprofloxacin (Cipro 200mg/100ml D5w) 100 mls @ 67 mls/hr IVPB Q12H [facility]; Protocol Last Admin: 08/31/18 19:32 Dose: 67 mls/hr Insulin Human Regular (Novolin R) 0 unit SC ACHS [facility]; Protocol Last Admin: 08/31/18 16:30 Dose: Not Given Levothyroxine Sodium (Synthroid) 75 mcg PO DAILY@0630 [facility] Last Admin: 08/31/18 06:01 Dose: 75 mcg Metoclopramide HCl (Reglan) 10 mg IVP DAILY@ONCE PRN PRN Reason: Nausea/Vomiting Last Admin: 08/31/18 08:24 Dose: 10 mg Ondansetron HCl (Zofran Inj) 4 mg IVP Q6 PRN PRN Reason: Nausea/Vomiting Last Admin: 08/30/18 12:19 Dose: 4 mg - Labs Labs: 08/31/18 07:17 08/31/18 07:17 - Constitutional Appears: No Acute Distress - Head Exam Head Exam: NORMAL INSPECTION, NORMOCEPHALIC - Eye Exam Eye Exam: EOMI, Normal appearance - ENT Exam ENT Exam: Mucous Membranes Moist - Neck Exam Neck Exam: Tenderness (bilaterall cervical paravertebral tenderness; no midline tenderness). absent: Meningismus - Respiratory Exam Respiratory Exam: Decreased Breath Sounds (at the bases bilaterally), NORMAL BREATHING PATTERN. absent: Accessory Muscle Use, Rhonchi, Wheezes, Respiratory Distress - Cardiovascular Exam Cardiovascular Exam: Tachycardia, REGULAR RHYTHM, +S1, +S2 - GI/Abdominal Exam GI & Abdominal Exam: Soft, Tenderness (moderate diffuse abdominal pain), Normal Bowel Sounds. absent: Distended, Firm, Guarding, Rigid - Extremities Exam Extremities Exam: Normal Capillary Refill. absent: Calf Tenderness Additional comments: LLE focused physical exam: AO splint clean/dry/intact; no evidence of bleeding Digits are warm to touch; capillary refill less than 2 seconds Light touch sensation intact to digits x5 Digital ROM present 2+ pitting edema just below the knee - Back Exam Back Exam: NORMAL INSPECTION, paraspinal tenderness (bilateral lumbar paravertebral tenderness; midline tenderness) - Neurological Exam Neurological Exam: Alert, Awake, Oriented x3 - Psychiatric Exam Psychiatric exam: Normal Affect, Normal Mood - Skin Skin Exam: Dry, Intact, Normal Color, Warm Assessment and Plan - Assessment and Plan (Free Text) Assessment: This is a 58 year old female with a past medical history of arthritis, hyperlipidemia, hypertension and insulin-dependent diabetes who is s/p left ankle fusion. Podiatry requested overnight observation. Pt noted to be hypotensive at low 90s over 50s, with blurry vision and abdominal pain. Pt is POD #2. Plan: S/p Left Ankle Fusion POD#2 Podiatry, Dr. Belle - Requested overnight observation. - Patient underwent - arthrodesis of left ankle joint using plate and screws with bone allograft - Continue to monitor - Pain control - dilaudid 2 mg PO q4h PRN pain -d/c 08/31/18 because it may be contributing to her current symptoms - Tylenol 650 mg IVP q6h prn nausea - NON-weight bearing activity Symptomatic hypotension - (low 90s SBP/50s DBP, tachycardic in the low 100s) - 250 cc saline bolus given with increase of BP to 129/74 - has resolved: SBP is 100s-140s, DBP is 60s-70s - pt continues to have has blurry vision and headache - FSBS has been in the 200s - orthostatic BPs: - 109/65 lying, 105/62 sitting - pt unable to tolerate standing due to dizziness - troponin x3 is negative - EKG is NSR, no acute STTW changes as read by me - repeat EKG is also NSR at 96; no acute STTW changes - Head CT shows no acute intracranial abnormality. Chronic microvascular ischemic changes. - pt has history of headache and dizziness, with prior visits to the ED for these symptoms - CXR shows no acute disease - continue to monitor Abdominal pain with nausea and vomiting - Abdominal CT with IV contrast shows mildly thick-walled urinary bladder with subtle inflammatory changes anteriorly. Subtle resions of renal scarring involving the right upper and right lower poles. Mild to moderate constipation. (see full report) - likely due to combination of UTI, constipation s/p surgery, and possible gastr oparesis due to longstanding DM - UA is positive for UTI - febrile (tmax 101); treat with Tylenol prn as above - no leukocytosis - ciprofloxacin 200 mg IVPB q12h - dilaudid po discontinued due to possible contribution to nausea and constipation - pt is receiving reglan 10 mg IVP daily for possible gastroparesis/nausea and vomiting - as well as zofran 4 mg IVP q6 as needed Hx of iron deficiency anemia - pt states that she hasn't taken her iron pill in a few days - Hgb is 8.5; likely dilutional ( baseline is high 10s/low 11s) - pt receiving NS at 100 mL/hr - Ferrlecit 125 mg IVPB x 1 given - f/u am labs Hx of Hypertension Continue Home Medication: - will hold home Enalapril Maleate 2.5mg until hypotension and dizziness resolves - Aspirin 81mg PO daily Hx of IDDM - ISS medium - accucheck ACHS - Hypoglycemic Protocol Hx of hypothyroidism Continue Home Medication: * Synthroid 75mcg PO daily PPX/Diet - Lovenox for VTE ppx - CCD Dispo: will start treatment for UTI inpatient; possible discharge tomorrow with PO cipro; pending improvement of symptoms Case discussed and reviewed with attending physician, Dr. Keli Jenkins PGY-1 <Herman Dickey - Last Filed: 09/01/18 07:23> Objective - Vital Signs/Intake and Output Vital Signs (last 24 hours): Temp Pulse Resp BP Pulse Ox 98.7 F 85 20 132/77 96 09/01/18 05:00 08/31/18 23:14 08/31/18 23:14 08/31/18 23:14 08/31/18 23:14 Intake and Output: 09/01/18 09/01/18 06:59 18:59 Intake Total 1200 Balance 1200 - Medications Medications: Current Medications Acetaminophen (Tylenol 325mg Tab) 650 mg PO Q6 PRN PRN Reason: Pain, Mild (1-3) Last Admin: 08/31/18 17:18 Dose: 650 mg Aspirin (Aspirin Chewable) 81 mg PO DAILY [facility] Last Admin: 08/31/18 10:49 Dose: 81 mg Dextrose (Dextrose 50% Inj) 0 ml IV STAT PRN; Protocol PRN Reason: Hypoglycemia Protocol Dextrose (Glutose 15) 0 gm PO ONCE PRN; Protocol PRN Reason: Hypoglycemia Protocol Enalapril Maleate (Vasotec) 2.5 mg PO DAILY [facility] Last Admin: 08/30/18 09:34 Dose: 2.5 mg Enoxaparin Sodium (Lovenox) 40 mg SC DAILY [facility] Last Admin: 08/31/18 12:25 Dose: 40 mg Glucagon (Glucagen Diagnostic Kit) 0 mg IM STAT PRN; Protocol PRN Reason: Hypoglycemia Protocol Dextrose (Dextrose 5% In Water 1000 Ml) 1,000 mls @ 0 mls/hr IV .Q0M PRN; Protocol PRN Reason: Hypoglycemia Protocol Sodium Chloride (Sodium Chloride 0.9%) 1,000 mls @ 100 mls/hr IV .Q10H [facility] Last Admin: 09/01/18 05:53 Dose: 100 mls/hr Ferric Sodium Gluconate Complex 125 mg/ Sodium Chloride 110 mls @ 110 mls/hr IVPB DAILY [facility] Stop: 09/08/18 11:01 Last Admin: 08/31/18 12:20 Dose: 110 mls/hr Insulin Human Regular (Novolin R) 0 unit SC ACHS [facility]; Protocol Last Admin: 08/31/18 21:57 Dose: Not Given Levothyroxine Sodium (Synthroid) 75 mcg PO DAILY@0630 [facility] Last Admin: 09/01/18 05:53 Dose: 75 mcg Metoclopramide HCl (Reglan) 10 mg IVP DAILY@ONCE PRN PRN Reason: Nausea/Vomiting Last Admin: 08/31/18 08:24 Dose: 10 mg Nitrofurantoin Macrocrystals (Macrobid) 100 mg PO Q12H [facility]; Protocol Ondansetron HCl (Zofran Inj) 4 mg IVP Q6 PRN PRN Reason: Nausea/Vomiting Last Admin: 08/30/18 12:19 Dose: 4 mg - Labs Labs: 08/31/18 07:17 08/31/18 07:17 Attending/Attestation - Attestation I have personally seen and examined this patient.: Yes I have fully participated in the care of the patient.: Yes I have reviewed all pertinent clinical information, including history, physical exam and plan: Yes Notes (Text): 09/01/18 07:16 Medical Attending: Patient was seen and examined by me as well. Agree with the above note by the resident The patient previously was having some numbers of low blood pressure and responded to IVF overnight. CT scan of her head because she continues to complain of dizziness however this did not show any acute findings Also there was ordered a CT scan of her abdomen and pelvis because she reported ongoing pain for, this did not show any acute proccess besides possible cystitis and a UA (which was not a clean catch) suggest she maybe having a UTI. We started Cipro IV, however it appears that later on this ordered was discontinued as the computer lablel now says she is allergic to cipro and cephalexin. We stopped the dilaudid as well. As previously mentioned cardiac enzymes were stable. We had ordered this since she has history of DM in case this was a different presentation for an HI. Per review of previous medical records she has had a few visits to the ER for similar complaints as she does now. I am inclined to discharge patient soon. Because of the supposed allergy to morphine, tylenol, and oxydone I am reluctant to write any controlled substances, (this being said she has not asked us for anything in particular) Herman Dickey
[2018-08-31 23:17] VITALS: RESP 20
[2018-09-01] MEDS: Sodium Chloride 0.9% 1,000 ML IV SCH ×4 (03:08→22:04)
[2018-09-01] MEDS: Levothyroxine 75 MCG TAB PO SCH (05:53)
[2018-09-01 07:28] LABS: BASO % 0.4 % (0.0-2.0); HEMOGLOBIN 7.5 g/dL (11.0-16.0); LYMPH # 2.4 K/uL (1.0-4.3); LYMPH % 19.9 % (20.0-40.0); MEAN CELL VOLUME 88.7 fL (81.0-99.0); MEAN CORPUSCULAR HEMOGLOBIN 29.2 pg (27.0-31.0); MEAN CORPUSCULAR HGB CONC 32.9 g/dL (33.0-37.0); MEAN PLATELET VOLUME 10.2 fL (7.2-11.7); MONO # 0.8 K/uL (0.0-0.8); MONO % 6.8 % (0.0-10.0); NEUT # 8.8 K/uL (1.8-7.0); NEUT % 72.9 % (50.0-75.0); RBC 2.57 Mil/uL (3.80-5.20); RED CELL DISTRIBUTION WIDTH 12.8 % (11.5-14.5); WHITE BLOOD COUNT 12.1 K/uL (4.8-10.8)
[2018-09-01 08:03] LABS: ALB/GLOB RATIO 0.9 (1.0-2.1); ALBUMIN 3.1 g/dL (3.5-5.0); ALT/SGPT 42 U/L (9-52); AST/SGOT 32 U/L (14-36); BLOOD UREA NITROGEN 12 mg/dL (7-17); CALCIUM 8.4 mg/dl (8.6-10.4); GFR NON-AFRICAN AMERICAN > 60
[2018-09-01] MEDS: (Novolin R) Insulin Human Regular 100 units/ml vial SC SCH ×4 (08:50→22:04)
[2018-09-01] MEDS: Enoxaparin 40 mg Syringe SC SCH (09:46)
[2018-09-01] MEDS: Ferric Sodium Gluconat Complex 125 MG in Sodium Chloride 0.9% 100 ML IVPB SCH (10:48)
--- NOTE | 2018-09-01 10:54 | CP.PCM.PN ---
Subjective - Date & Time of Evaluation Date of Evaluation: 09/01/18 Time of Evaluation: 10:54 - Subjective Subjective: Podiatry - Dr. Belle 58 year old female patient seen and evaluated at bedside this AM POD#3 left ankle joint arthrodesis (DOS 08/29/18). Seen with Medicine on rounds. Patient reports left ankle pain continues to decrease, well-controlled; has been keeping LLE elevated. AO splint clean/dry/intact. Patient complains of dizziness and he adache though improved since yesterday. Hgb 7.5 this AM. Objective - Vital Signs/Intake and Output Vital Signs (last 24 hours): Temp Pulse Resp BP Pulse Ox 98 F 96 H 20 147/75 96 09/01/18 07:55 09/01/18 07:55 09/01/18 07:55 09/01/18 07:55 09/01/18 07:55 Intake and Output: 09/01/18 09/01/18 06:59 18:59 Intake Total 1200 Balance 1200 - Medications Medications: Current Medications Acetaminophen (Tylenol 325mg Tab) 650 mg PO Q6 PRN PRN Reason: Pain, Mild (1-3) Last Admin: 08/31/18 17:18 Dose: 650 mg Aspirin (Aspirin Chewable) 81 mg PO DAILY [facility] Last Admin: 09/01/18 10:48 Dose: 81 mg Dextrose (Dextrose 50% Inj) 0 ml IV STAT PRN; Protocol PRN Reason: Hypoglycemia Protocol Dextrose (Glutose 15) 0 gm PO ONCE PRN; Protocol PRN Reason: Hypoglycemia Protocol Enalapril Maleate (Vasotec) 2.5 mg PO DAILY [facility] Last Admin: 08/30/18 09:34 Dose: 2.5 mg Enoxaparin Sodium (Lovenox) 40 mg SC DAILY [facility] Last Admin: 09/01/18 09:46 Dose: Not Given Glucagon (Glucagen Diagnostic Kit) 0 mg IM STAT PRN; Protocol PRN Reason: Hypoglycemia Protocol Dextrose (Dextrose 5% In Water 1000 Ml) 1,000 mls @ 0 mls/hr IV .Q0M PRN; Protocol PRN Reason: Hypoglycemia Protocol Sodium Chloride (Sodium Chloride 0.9%) 1,000 mls @ 100 mls/hr IV .Q10H [facility] Last Admin: 09/01/18 05:53 Dose: 100 mls/hr Ferric Sodium Gluconate Complex 125 mg/ Sodium Chloride 110 mls @ 110 mls/hr IVPB DAILY [facility] Stop: 09/08/18 11:01 Last Admin: 09/01/18 10:48 Dose: 110 mls/hr Insulin Human Regular (Novolin R) 0 unit SC ACHS [facility]; Protocol Last Admin: 09/01/18 08:50 Dose: 4 units Levothyroxine Sodium (Synthroid) 75 mcg PO DAILY@0630 [facility] Last Admin: 09/01/18 05:53 Dose: 75 mcg Metoclopramide HCl (Reglan) 10 mg IVP DAILY@ONCE PRN PRN Reason: Nausea/Vomiting Last Admin: 08/31/18 08:24 Dose: 10 mg Nitrofurantoin Macrocrystals (Macrobid) 100 mg PO Q12H [facility]; Protocol Last Admin: 09/01/18 10:48 Dose: 100 mg Ondansetron HCl (Zofran Inj) 4 mg IVP Q6 PRN PRN Reason: Nausea/Vomiting Last Admin: 09/01/18 08:53 Dose: 4 mg Polyethylene Glycol (Miralax) 17 gm PO DAILY [facility] - Labs Labs: 09/01/18 07:10 09/01/18 06:30 - Constitutional Appears: No Acute Distress - Extremities Exam Additional comments: AO splint clean/dry/intact VASC: DP and PT pulses palpable 1/4 b/l. Temperature gradient warm to warm b/l. CFT <3 seconds to all digits b/l. Moderate non-pitting edema LLE. NEURO: Gross and protective pedal sensation diminished. Light touch sensation intact to digits x5 DERM: LLE=Linear surgical incision noted to anterior ankle joint appears well-coapted with sutures intact and no wound dehiscence present; no active bleeding present; serous bullae present along entire incision; no hematoma present; ecchymosis noted periwound; ecchymosis noted along medial calcaneus. RLE=Healed ulceration sub met 3 with hyperkeratotic rim; no drainage; no purulence; no fluctuance; no clinical signs of infection; no periwound erythema. ORTHO: LLE=MMT deferred secondary to ankle ORIF; tenderness to palpation along incision; digital ROM present. No pain upon calf squeeze RLE=s/p 4th and 5th partial ray amputations - Neurological Exam Neurological Exam: Alert, Awake - Psychiatric Exam Psychiatric exam: Normal Affect, Normal Mood Assessment and Plan - Assessment and Plan (Free Text) Assessment: 58F POD#3 arthrodesis of left ankle joint using plate and screws with bone allograft (DOS 08/29/18) Plan: Patient seen and evaluated Discussed with attending, Dr. Belle Tmax 100.1 overnight, WBC 12.1 LLE dressing changed - betadine, DSD Newly formed bullae lanced, will continue to monitor AO splint reapplied Pain control - Tylenol 650mg Continue PT/OT Activity: NWB LLE Patient to follow up with Dr. Belle in the podiatry clinic next week 09/05/18 Podiatry will continue to follow
[2018-09-01] MEDS: POLYETHYLENE GLYCOL 3350 17 GM/Dose PACKET PO SCH (11:48)
[2018-09-01] MEDS ORDERED: Aztreonam 1 GM in Sodium Chloride 0.9% 100 ML IVPB SCH (12:00)
--- NOTE | 2018-09-01 12:31 | CP.PCM.PN ---
<Fran Jenkins - Last Filed: 09/02/18 07:14> Subjective - Date & Time of Evaluation Date of Evaluation: 09/01/18 Time of Evaluation: 12:30 - Subjective Subjective: Fran Jenkins PGY-1, Medicine progress note Pt was seen and examined at bedside. Pt is POD 3 s/p arthrodesis of left ankle joint using plate and screws with bone allograft by Dr. Belle. Pt developed pruritus at the IV site during ciprofloxacin administration. Ciprofloxacin was discontinued, added to the list of allergies, and Macrobid PO was started. Pt had fever (tmax 100.1) overnight, which was controlled with Tylenol. She reports that she has been feeling less dizzy today, but still has some dizziness when she sits up and attempts to leave the bed. Headache is improved. Pt denies weakness, chest pain, sob, hemoptysis, blood in the vomit, hematochezia, melena, urinary complaints. Left lower leg pain s/p surgery is improved and well controlled. Pt has not had a bowel movement, but is passing gas. Objective - Vital Signs/Intake and Output Vital Signs (last 24 hours): Temp Pulse Resp BP Pulse Ox 98 F 96 H 20 147/75 96 09/01/18 07:55 09/01/18 07:55 09/01/18 07:55 09/01/18 07:55 09/01/18 07:55 Intake and Output: 09/01/18 09/01/18 06:59 18:59 Intake Total 1200 Balance 1200 - Medications Medications: Current Medications Acetaminophen (Tylenol 325mg Tab) 650 mg PO Q6 PRN PRN Reason: Pain, Mild (1-3) Last Admin: 08/31/18 17:18 Dose: 650 mg Aspirin (Aspirin Chewable) 81 mg PO DAILY [facility] Last Admin: 09/01/18 10:48 Dose: 81 mg Dextrose (Dextrose 50% Inj) 0 ml IV STAT PRN; Protocol PRN Reason: Hypoglycemia Protocol Dextrose (Glutose 15) 0 gm PO ONCE PRN; Protocol PRN Reason: Hypoglycemia Protocol Enalapril Maleate (Vasotec) 2.5 mg PO DAILY [facility] Last Admin: 08/30/18 09:34 Dose: 2.5 mg Enoxaparin Sodium (Lovenox) 40 mg SC DAILY [facility] Last Admin: 09/01/18 09:46 Dose: Not Given Glucagon (Glucagen Diagnostic Kit) 0 mg IM STAT PRN; Protocol PRN Reason: Hypoglycemia Protocol Dextrose (Dextrose 5% In Water 1000 Ml) 1,000 mls @ 0 mls/hr IV .Q0M PRN; Pro tocol PRN Reason: Hypoglycemia Protocol Sodium Chloride (Sodium Chloride 0.9%) 1,000 mls @ 100 mls/hr IV .Q10H [facility] Last Admin: 09/01/18 11:48 Dose: Not Given Ferric Sodium Gluconate Complex 125 mg/ Sodium Chloride 110 mls @ 110 mls/hr IVPB DAILY [facility] Stop: 09/08/18 11:01 Last Admin: 09/01/18 10:48 Dose: 110 mls/hr Aztreonam 1 gm/ Sodium (Chloride) 100 mls @ 200 mls/hr IVPB Q8H [facility]; Protocol Last Admin: 09/01/18 12:03 Dose: Not Given Potassium Chloride (Potassium Chloride 10 Meq/100 Ml) 10 meq in 100 mls @ 100 mls/hr IVPB Q1H [facility] Stop: 09/01/18 12:59 Last Admin: 09/01/18 11:48 Dose: 100 mls/hr Insulin Human Regular (Novolin R) 0 unit SC ACHS [facility]; Protocol Last Admin: 09/01/18 08:50 Dose: 4 units Levothyroxine Sodium (Synthroid) 75 mcg PO DAILY@0630 [facility] Last Admin: 09/01/18 05:53 Dose: 75 mcg Metoclopramide HCl (Reglan) 10 mg IVP DAILY@ONCE PRN PRN Reason: Nausea/Vomiting Last Admin: 08/31/18 08:24 Dose: 10 mg Ondansetron HCl (Zofran Inj) 4 mg IVP Q6 PRN PRN Reason: Nausea/Vomiting Last Admin: 09/01/18 08:53 Dose: 4 mg Polyethylene Glycol (Miralax) 17 gm PO DAILY [facility] Last Admin: 09/01/18 11:48 Dose: 17 gm - Labs Labs: 09/01/18 07:10 09/01/18 06:30 - Constitutional Appears: Non-toxic, No Acute Distress - Head Exam Head Exam: NORMAL INSPECTION, NORMOCEPHALIC - Eye Exam Eye Exam: EOMI, Normal appearance - ENT Exam ENT Exam: Mucous Membranes Moist - Neck Exam Neck Exam: Full ROM, Normal Inspection, Tenderness (bilateral cervical paravertebral tenderness; no midline tenderness) - Respiratory Exam Respiratory Exam: Rhonchi (at the bases bilaterally). absent: Wheezes, Respiratory Distress - Cardiovascular Exam Cardiovascular Exam: REGULAR RHYTHM, +S1, +S2 - GI/Abdominal Exam GI & Abdominal Exam: Soft, Normal Bowel Sounds. absent: Distended, Firm, Guarding, Rigid, Tenderness, Rebound - Extremities Exam Extremities Exam: absent: Calf Tenderness, Pedal Edema Additional comments: LLE focused physical exam was done while podiatry was changing the spint: No evidence of bleeding; sutures intact, wound is clean, no drainage, no surrounding erythema; minimal surrounding pain Digits are warm to touch; capillary refill less than 2 seconds Light touch sensation intact to digits x5 Digital ROM present 1+ pitting edema just below the knee 2+ DP - Back Exam Back Exam: NORMAL INSPECTION, paraspinal tenderness (bilateral lumbar paravertebral tenderness; midline tenderness) - Neurological Exam Neurological Exam: Alert, Normal Gait, Oriented x3 - Psychiatric Exam Psychiatric exam: Normal Affect, Normal Mood - Skin Skin Exam: Dry, Normal Color, Warm Assessment and Plan - Assessment and Plan (Free Text) Assessment: This is a 58 year old female with a past medical history of arthritis, hyperlipidemia, hypertension and insulin-dependent diabetes who is s/p left ankle fusion. Podiatry requested overnight observation. Pt noted to be hypot ensive at low 90s over 50s, with blurry vision and abdominal pain. Pt is POD #2. Plan: S/p Left Ankle Fusion POD#3 Podiatry, Dr. Belle - Patient underwent - arthrodesis of left ankle joint using plate and screws with bone allograft - Continue to monitor - Pain control - dilaudid 2 mg PO q4h PRN pain -d/c 08/31/18 because it may be contributing to her current symptoms - Tylenol 650 mg IVP q6h prn nausea - NON-weight bearing activity Symptomatic hypotension (resolved) - (low 90s SBP/50s DBP, tachycardic in the low 100s) - 250 cc saline bolus given with increase of BP to 129/74 - has resolved: SBP is 100s-140s, DBP is 60s-70s - pt continues to have has blurry vision and headache - FSBS has been in the 200s - orthostatic BPs: - 109/65 lying, 105/62 sitting - pt unable to tolerate standing due to dizziness - troponin x3 is negative - EKG is NSR, no acute STTW changes as read by me - repeat EKG is also NSR at 96; no acute STTW changes - Head CT shows no acute intracranial abnormality. Chronic microvascular ischemic changes. - pt has history of headache and dizziness, with prior visits to the ED for these symptoms - CXR shows no acute disease - continue to monitor Abdominal pain with nausea and vomiting - Abdominal CT with IV contrast shows mildly thick-walled urinary bladder with subtle inflammatory changes anteriorly. Subtle resions of renal scarring involving the right upper and right lower poles. Mild to moderate constipation. (see full report) - likely due to combination of UTI, constipation s/p surgery, and possible gastroparesis due to longstanding DM - dilaudid po discontinued due to possible contribution to nausea and constipation - pt is receiving reglan 10 mg IVP daily for possible gastroparesis/nausea and vomiting - as well as zofran 4 mg IVP q6 as needed Leukocytosis -UA is positive for UTI - repeat straight cath UA and Ucx and sensitivity - febrile (tmax 101); treat with Tylenol prn as above - ciprofloxacin discontinued due to pruritus at IV site - Aztreonam 1gm q8h started -f/u blood culture, UA, urine C&S Constipation -miralax 1 packet daily Hx of iron deficiency anemia - pt states that she hasn't taken her iron pill in a few days - Hgb is now 7.5;( baseline is high 10s/low 11s) - pt receiving NS at 100 mL/hr - Ferrlecit 125 mg IVPB x 1 given - will transfuse 1 unit pRBC - f/u am labs Hx of Hypertension Continue Home Medication: - will hold home Enalapril Maleate 2.5mg until hypotension and dizziness resolves - Aspirin 81mg PO daily Hx of IDDM - ISS medium - accucheck ACHS - Hypoglycemic Protocol Hx of hypothyroidism Continue Home Medication: * Synthroid 75mcg PO daily PPX/Diet - Lovenox for VTE ppx held due to anemia - CCD Dispo: will start treatment for UTI inpatient; possible discharge tomorrow with antibiotics if needed; pending improvement of symptoms Case discussed and reviewed with attending physician, Dr. Keli Jenkins PGY-1 <Herman Dickey H - Last Filed: 09/02/18 07:26> Objective - Vital Signs/Intake and Output Vital Signs (last 24 hours): Temp Pulse Resp BP Pulse Ox 99 F 81 20 131/74 96 09/02/18 05:00 09/01/18 23:58 09/01/18 23:58 09/01/18 23:58 09/01/18 23:58 Intake and Output: 09/02/18 09/02/18 06:59 18:59 Intake Total 2390 Balance 2390 - Medications Medications: Current Medications Acetaminophen (Tylenol 325mg Tab) 650 mg PO Q6 PRN PRN Reason: Pain, Mild (1-3) Last Admin: 09/01/18 20:05 Dose: 650 mg Aspirin (Aspirin Chewable) 81 mg PO DAILY [facility] Last Admin: 09/01/18 10:48 Dose: 81 mg Dextrose (Dextrose 50% Inj) 0 ml IV STAT PRN; Protocol PRN Reason: Hypoglycemia Protocol Dextrose (Glutose 15) 0 gm PO ONCE PRN; Protocol PRN Reason: Hypoglycemia Protocol Docusate Sodium (Colace) 100 mg PO BID [facility] Last Admin: 09/02/18 00:29 Dose: 100 mg Enalapril Maleate (Vasotec) 2.5 mg PO DAILY [facility] Last Admin: 08/30/18 09:34 Dose: 2.5 mg Enoxaparin Sodium (Lovenox) 40 mg SC DAILY [facility] Last Admin: 09/01/18 09:46 Dose: Not Given Glucagon (Glucagen Diagnostic Kit) 0 mg IM STAT PRN; Protocol PRN Reason: Hypoglycemia Protocol Sodium Chloride (Sodium Chloride 0.9%) 1,000 mls @ 100 mls/hr IV .Q10H [facility] Last Admin: 09/01/18 22:04 Dose: 100 mls/hr Ferric Sodium Gluconate Complex 125 mg/ Sodium Chloride 110 mls @ 110 mls/hr IVPB DAILY [facility] Stop: 09/08/18 11:01 Last Admin: 09/01/18 10:48 Dose: 110 mls/hr Aztreonam 1 gm/ Sodium (Chloride) 100 mls @ 200 mls/hr IVPB Q8H [facility]; Protocol Last Admin: 09/02/18 00:29 Dose: 200 mls/hr Insulin Human Regular (Novolin R) 0 unit SC [facility]; Protocol Last Admin: 09/01/18 22:04 Dose: Not Given Levothyroxine Sodium (Synthroid) 75 mcg PO DAILY@0630 [facility] Last Admin: 09/02/18 05:44 Dose: 75 mcg Metoclopramide HCl (Reglan) 10 mg IVP DAILY@ONCE PRN PRN Reason: Nausea/Vomiting Last Admin: 08/31/18 08:24 Dose: 10 mg Ondansetron HCl (Zofran Inj) 4 mg IVP Q6 PRN PRN Reason: Nausea/Vomiting Last Admin: 09/01/18 17:28 Dose: 4 mg Polyethylene Glycol (Miralax) 17 gm PO DAILY [facility] Last Admin: 09/01/18 11:48 Dose: 17 gm - Labs Labs: 09/01/18 07:10 09/01/18 06:30 Attending/Attestation - Attestation I have personally seen and examined this patient.: Yes I have fully participated in the care of the patient.: Yes I have reviewed all pertinent clinical information, including history, physical exam and plan: Yes Notes (Text): 09/02/18 07:26 Medical attending: Patient was seen and examined by me, I reviewed the above note by medical claims representative and agree with the above note The patient was not in any acute distress when we came and saw them - she looked much more awake and alert when we came and saw. I am beggining to suspect that a lot of this had to do with the IV dilaudid making her feel terrible. She nevertheless had fevers and urine and blood cultures were sent The patient had dressing changes and the ankle area looks clean, dry, there was no bleeding and no erythema. BP is steady, she was on cipro IV - this was stopped due to an allery - she now has listed many things as allergies. We started on Aztreonam for the time being. Thank you very much, Herman Dickey
[2018-09-01] MEDS: Aztreonam 1 GM in Sodium Chloride 0.9% 100 ML IVPB SCH (16:43)
[2018-09-02] MEDS: Aztreonam 1 GM in Sodium Chloride 0.9% 100 ML IVPB SCH ×2 (00:29→07:50)
--- NOTE | 2018-09-02 04:01 | OP ---
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 PROCEDURE PERFORMED: Arthrodesis of left ankle joint with plate and screws fixation and bone allograft application. ANESTHESIOLOGIST: Dr. Smart. TYPE OF ANESTHESIA: General, regional (popliteal), local (saphenous). INDICATION: The patient is a 58-year-old female with the above-mentioned diagnosis, and the patient is being treated by Dr. Belle in [facility] on a regular basis. Of note, the patient does state that she suffered an ankle fracture to the left ankle several years ago and has a deformity to the left ankle joint ever since which is painful on ambulation. The patient seeks surgical intervention at this time. All risks, benefits, and possible complications to the proposed procedure have been explained to the patient at length. The patient verbalizes understanding and wishes to proceed. All questions were answered. No guarantees were given nor implied. Consent was signed, and n.p.o. was confirmed prior to bringing the patient into the operating room. DESCRIPTION OF PROCEDURE: The patient was brought into the operating room and placed on the operating room table in a supine position. A well-padded pneumatic thigh tourniquet was placed to the patient's left thigh with plenty of Webril cast padding. Once anesthesia was achieved, the left foot and ankle were then prepped and draped in the usual sterile manner and the procedure was begun. PROCEDURE: Arthrodesis of left ankle joint with plate and screw fixation and bone allograft application. Our attention was now directed to the anterior aspect of the patient's left ankle joint where the landmark of the tibialis anterior tendon and the extensor digitorum longus tendons were identified. Using #15 blade, an approximately 15 cm linear longitudinal incision was made along the anterior aspect of the distal leg, extending down to the ankle joint and ending just over the dorsal aspect of the talus. At this time, care was taken to avoid all vital neurovascular structures. All bleeders were cauterized as necessary. The incision was then carried down to the subcutaneous tissue using blunt tissue dissection in order to avoid any neurovascular structures within the subcutaneous flap. At this time, a #15 blade was utilized to make a linear incision through the extensor retinaculum at the level of the ankle joint which was then reflected medially and laterally, thus exposing the capsule of the ankle joint into the operative field. Next using #15 blade, a linear incision made over the periosteum over the ankle joint and extending proximally up the insertion. A chung elevator was utilized to reflect the periosteum medially and laterally, thus exposing the anterior aspect of the ankle joint into the operative site. Next, a sagittal bone saw was utilized to remove the articular aspect of the distal tibia and approximately 3 mm section of bone was removed in total from the distal tibia and was passed from the operative field. Next, the sagittal bone saw was then utilized to resect an approximately 2 mm of bone wedge from the trochlear articular surface of the talus which was then passed from the operative field. At this time, the decision was made to excise the hypertrophic medial malleolus. Utilizing the sagittal bone saw, the remaining medial malleolus were then excised from the distal tibia in a tangential fashion to distal tibia and then passed from the operative field. At this time, a 2 drill bit was utilized to subchondral drill across the distal tibia in the trochlear surface of the talus with healthy bleeding bone achieved. Next, a femoral head allograft was utilized to create an approximately 2 mm thick wedge of bone which was then drilled across forming channels with the 2 drill bit, and then the allograft was placed between the distal tibia and trochlear surface of the talus with excellent position noted. At this time, the ankle joint did appear to be corrected at the varus malaligned position and appeared to be sitting in a more rectus anatomical position. Next, a Synthes anterior ankle arthrodesis plate 6-hole was chosen and then placed over the anterior aspect of the ankle joint. Using intraoperative fluoroscopy, the ankle plate was then temporarily fixated using K wires in an anatomic position. Next, using standard AO principles and techniques, a 4.5 x 30 mm cortical Synthes screw was inserted in the plate into the most distal hole of the plate into the talus. Following the placement of screw and using standard AO principles and techniques, a 6.5 partially threaded cancellous screw measuring 18 mm in length was now placed in the second most distal hole across the ankle joint and across the subtalar joint. Next, a 6.5 partially threaded cancellous screw measuring 30 mm was then placed above the level of the ankle joint in the third most distal hole. Following this, a 5 x 30 mm locking screw was then placed proximal to the prior screw. Next a 6.5 fully threaded cancellous screw measuring 25 mm in length was then placed using standard AO principles and techniques in the second most proximal hole, and next a 4.5 x 30 mm fully threaded cortical screw was inserted into the most proximal hole into the tibia of the plate using standard AO principles and techniques. At this time, a decision was made to also add additional stability and compression across the ankle joint, and a K-wire was placed from medial aspect of the tibia endeavoring into the distal lateral aspect of the talus and a second K-wire was positioned in crossing fashion from the lateral aspect of the distal tibia into the medial distal aspect of the talus. Using standard AO principles and techniques, a 7.3 partially threaded cannulated screw measuring 75 mm were placed in the first hole, and a 7.3 partially threaded cannulated screw measuring 70 mm was placed in the other hole. Of note, excellent compression did appear to be achieved at that time across the ankle joint and again the varus alignment of the ankle joint did appear to be corrected at this time with the ankle plate in a more anatomic neutral position. Surgical site was then flushed with copious amount of sterile normal saline solution. The capsular layers and the extensor retinaculum were then repaired using 2-0 Vicryl and deep subcutaneous tissue was reapproximated using 3-0 Vicryl. Subcuticular tissue was reapproximated using combination of 4-0 and 3-0 Vicryl and skin edges were reapproximated and corrected using 4-0 nylon suture. Postoperative injections consisted of 10 mL of 0.25% Marcaine plain as a saphenous block. Postoperative dressings included Betadine-soaked Adaptic, 4x4 gauze, Jonny, Kerlix. A well-padded AO below-knee splint was then applied to the left lower extremity with the ankle placed in a neutral position. POSTOPERATIVE CONDITION: The patient tolerated the procedure and anesthesia well with no apparent complications or complaints. The patient was escorted from the OR to the recovery room with vital signs stable and neurovascular structures intact. The patient will follow up with Dr. Belle in her office on an outpatient basis. The patient will be admitted at this time for pain control. Melania Forman DPM Mindy Belle DPM [facility]
[2018-09-02] MEDS: Levothyroxine 75 MCG TAB PO SCH (05:44)
[2018-09-02 07:33] VITALS: BP 154/73; PULSE 72; TEMP 98.2; O2SAT 97
[2018-09-02] MEDS: (Novolin R) Insulin Human Regular 100 units/ml vial SC SCH ×2 (07:51→11:38)
--- NOTE | 2018-09-02 08:02 | CP.PCM.PN ---
Subjective - Date & Time of Evaluation Date of Evaluation: 09/02/18 Time of Evaluation: 08:02 - Subjective Subjective: Podiatry - Dr. Belle 58 year old female patient seen and evaluated at bedside this AM POD#4 left ankle joint arthrodesis (DOS 08/29/18). Patient resting comfortably with AO splint intact and elevated on pillows. Patient reports continued left ankle pain, controlled via medications. States dizziness and headache improving, still complains of abdominal pain and episodes of vomiting. 1U pRBC transfused yesterday. Objective - Vital Signs/Intake and Output Vital Signs (last 24 hours): Temp Pulse Resp BP Pulse Ox 98.2 F 72 20 154/73 H 97 09/02/18 07:32 09/02/18 07:32 09/02/18 07:32 09/02/18 07:32 09/02/18 07:32 Intake and Output: 09/02/18 09/02/18 06:59 18:59 Intake Total 2390 Balance 2390 - Medications Medications: Current Medications Acetaminophen (Tylenol 325mg Tab) 650 mg PO Q6 PRN PRN Reason: Pain, Mild (1-3) Last Admin: 09/01/18 20:05 Dose: 650 mg Aspirin (Aspirin Chewable) 81 mg PO DAILY [facility] Last Admin: 09/01/18 10:48 Dose: 81 mg Dextrose (Dextrose 50% Inj) 0 ml IV STAT PRN; Protocol PRN Reason: Hypoglycemia Protocol Dextrose (Glutose 15) 0 gm PO ONCE PRN; Protocol PRN Reason: Hypoglycemia Protocol Docusate Sodium (Colace) 100 mg PO BID [facility] Last Admin: 09/02/18 00:29 Dose: 100 mg Enalapril Maleate (Vasotec) 2.5 mg PO DAILY [facility] Last Admin: 08/30/18 09:34 Dose: 2.5 mg Enoxaparin Sodium (Lovenox) 40 mg SC DAILY [facility] Last Admin: 09/01/18 09:46 Dose: Not Given Glucagon (Glucagen Diagnostic Kit) 0 mg IM STAT PRN; Protocol PRN Reason: Hypoglycemia Protocol Sodium Chloride (Sodium Chloride 0.9%) 1,000 mls @ 100 mls/hr IV .Q10H [facility] Last Admin: 09/01/18 22:04 Dose: 100 mls/hr Ferric Sodium Gluconate Complex 125 mg/ Sodium Chloride 110 mls @ 110 mls/hr IVPB DAILY [facility] Stop: 09/08/18 11:01 Last Admin: 09/01/18 10:48 Dose: 110 mls/hr Aztreonam 1 gm/ Sodium (Chloride) 100 mls @ 200 mls/hr IVPB Q8H [facility]; Protocol Last Admin: 09/02/18 07:50 Dose: 200 mls/hr Insulin Human Regular (Novolin R) 0 unit SC ACHS [facility]; Protocol Last Admin: 09/02/18 07:51 Dose: 2 units Levothyroxine Sodium (Synthroid) 75 mcg PO DAILY@0630 [facility] Last Admin: 09/02/18 05:44 Dose: 75 mcg Metoclopramide HCl (Reglan) 10 mg IVP DAILY@ONCE PRN PRN Reason: Nausea/Vomiting Last Admin: 08/31/18 08:24 Dose: 10 mg Ondansetron HCl (Zofran Inj) 4 mg IVP Q6 PRN PRN Reason: Nausea/Vomiting Last Admin: 09/01/18 17:28 Dose: 4 mg Polyethylene Glycol (Miralax) 17 gm PO DAILY [facility] Last Admin: 09/01/18 11:48 Dose: 17 gm - Labs Labs: 09/01/18 07:10 09/01/18 06:30 - Constitutional Appears: Non-toxic, No Acute Distress - Extremities Exam Additional comments: AO splint clean/dry/intact VASC: DP and PT pulses palpable 1/4 b/l, audible on doppler examination. Temperature gradient warm to warm b/l. CFT <3 seconds to all digits b/l. Moderate non-pitting edema LLE. NEURO: Gross and protective pedal sensation diminished. Light touch sensation intact to digits x5 DERM: LLE=Linear surgical incision noted to anterior ankle joint appears well-coapted with sutures intact and no wound dehiscence present; no active bleeding present; newly developed serous bullae present along entire incision; no hematoma present; ecchymosis noted periwound; ecchymosis noted along medial calcaneus, worsening. RLE=Healed ulceration sub met 3 with hyperkeratotic rim; no drainage; no purulence; no fluctuance; no clinical signs of infection; no periwound erythema. ORTHO: LLE=MMT deferred secondary to ankle ORIF; tenderness to palpation along incision; digital ROM present. 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 Belle Tmax 99.9, WBC 8.1 LLE dressing changed - betadine, DSD Newly formed bullae lanced; will continue to monitor 3 sutures removed to drain possible hematoma, no hematoma present AO splint reapplied; keep leg elevated w/ice behind knee Pain control - Tylenol 650mg Continue PT/OT Activity: NWB LLE Stable for dc per podiatry; f/u primary recs Patient to follow up with Dr. Belle in the podiatry clinic next week 09/05/18 Podiatry will continue to follow
[2018-09-02 08:27] LABS: SQUAMOUS EPITHIAL < 1 /hpf (0-5); URINE BILIRUBIN NEGATIVE (NEGATIVE); URINE BLOOD NEGATIVE (NEGATIVE); URINE CLARITY Clear (Clear); URINE COLOR Straw (YELLOW); URINE GLUCOSE (UA) 1+ mg/dL (Normal); URINE LEUKOCYTE ESTERASE NEG Leu/uL (Negative); URINE PROTEIN 1+ mg/dL (NEGATIVE); URINE UROBILINOGEN NORMAL mg/dL (0.2-1.0)
[2018-09-02] MEDS: Enoxaparin 40 mg Syringe SC SCH ×2 (09:31→13:20)
[2018-09-02] MEDS: POLYETHYLENE GLYCOL 3350 17 GM/Dose PACKET PO SCH (09:57)
--- NOTE | 2018-09-02 11:00 | CP.PCM.DIS ---
<Fely Triana - Last Filed: 09/02/18 13:58> Provider - Provider Date of Admission: 08/29/18 16:21 Attending physician: Herman Dickey DO Time Spent in preparation of Discharge (in minutes): 29 Diagnosis - Discharge Diagnosis (1) Fever Status: Acute Comment: fevers s/p surgery. Resolved (2) Anemia Status: Acute Comment: Anemia s/p surgery. Transfused 1U PRBC Hospital Course - Lab Results Lab Results: Most Recent Lab Values WBC 12.1 K/uL (4.8-10.8) H 09/01/18 07:10 RBC 2.57 Mil/uL (3.80-5.20) L 09/01/18 07:10 Hgb 7.5 g/dL (11.0-16.0) L 09/01/18 07:10 Hct 22.8 % (34.0-47.0) L 09/01/18 07:10 MCV 88.7 fL (81.0-99.0) 09/01/18 07:10 MCH 29.2 pg (27.0-31.0) 09/01/18 07:10 MCHC 32.9 g/dL (33.0-37.0) L 09/01/18 07:10 RDW 12.8 % (11.5-14.5) 09/01/18 07:10 Plt Count 185 K/uL (130-400) 09/01/18 07:10 MPV 10.2 fL (7.2-11.7) 09/01/18 07:10 Neut % (Auto) 72.9 % (50.0-75.0) 09/01/18 07:10 Lymph % (Auto) 19.9 % (20.0-40.0) L 09/01/18 07:10 [place] % (Auto) 6.8 % (0.0-10.0) 09/01/18 07:10 Eos % (Auto) 0.0 % (0.0-4.0) 09/01/18 07:10 Baso % (Auto) 0.4 % (0.0-2.0) 09/01/18 07:10 Neut # (Auto) 8.8 K/uL (1.8-7.0) H 09/01/18 07:10 Lymph # (Auto) 2.4 K/uL (1.0-4.3) 09/01/18 07:10 [place] # (Auto) 0.8 K/uL (0.0-0.8) 09/01/18 07:10 Eos # (Auto) 0.0 K/uL (0.0-0.7) 09/01/18 07:10 Baso # (Auto) 0.0 K/uL (0.0-0.2) 09/01/18 07:10 Sodium 138 mmol/L (132-148) 09/01/18 06:30 Potassium 3.4 mmol/L (3.6-5.2) L 09/01/18 06:30 Chloride 103 mmol/L (98-107) 09/01/18 06:30 Carbon Dioxide 24 mmol/L (22-30) 09/01/18 06:30 Anion Gap 15 (10-20) 09/01/18 06:30 BUN 12 mg/dL (7-17) 09/01/18 06:30 Creatinine 0.6 mg/dL (0.7-1.2) L 09/01/18 06:30 Est GFR ( Amer) > 60 09/01/18 06:30 Est GFR (Non-Af Amer) > 60 09/01/18 06:30 POC Glucose (mg/dL) 183 mg/dL (65-110) H 09/02/18 07:04 Random Glucose 216 mg/dL (65-105) H 09/01/18 06:30 Calcium 8.4 mg/dl (8.6-10.4) L 09/01/18 06:30 Phosphorus 2.5 mg/dL (2.5-4.5) 08/31/18 07:17 Magnesium 1.7 mg/dL (1.6-2.3) 08/31/18 07:17 Total Bilirubin 0.6 mg/dL (0.2-1.3) 09/01/18 06:30 AST 32 U/L (14-36) 09/01/18 06:30 ALT 42 U/L (9-52) 09/01/18 06:30 Alkaline Phosphatase 176 U/L (38-126) H D 09/01/18 06:30 Troponin I < 0.0120 ng/mL (0.00-0.120) 08/31/18 07:17 Total Protein 6.4 g/dL (6.3-8.3) 09/01/18 06:30 Albumin 3.1 g/dL (3.5-5.0) L 09/01/18 06:30 Globulin 3.3 gm/dL (2.2-3.9) 09/01/18 06:30 Albumin/Globulin Ratio 0.9 (1.0-2.1) L 09/01/18 06:30 Urine Color Straw (YELLOW) 09/02/18 08:18 Urine Clarity Clear (Clear) 09/02/18 08:18 Urine pH 7.0 (5.0-8.0) 09/02/18 08:18 Ur Specific [place] 1.008 (1.003-1.030) 09/02/18 08:18 Urine Protein 1+ mg/dL (NEGATIVE) H 09/02/18 08:18 Urine Glucose (UA) 1+ mg/dL (Normal) 09/02/18 08:18 Urine Ketones Trace mg/dL (NEGATIVE) 09/02/18 08:18 Urine Blood Negative (NEGATIVE) 09/02/18 08:18 Urine Nitrate Negative (NEGATIVE) 09/02/18 08:18 Urine Bilirubin Negative (NEGATIVE) 09/02/18 08:18 Urine Urobilinogen Normal mg/dL (0.2-1.0) 09/02/18 08:18 Ur Leukocyte Esterase Neg Bharati/uL (Negative) 09/02/18 08:18 Urine WBC (Auto) < 1 /hpf (0-5) 09/02/18 08:18 Urine RBC (Auto) < 1 /hpf (0-3) 09/02/18 08:18 Ur Squamous Epith Cells < 1 /hpf (0-5) 09/02/18 08:18 Urine Bacteria Occ (<OCC) H 08/31/18 16:54 Influenza Typ A,B (EIA) Negative for flu a/b (NEGATIVE) 09/01/18 13:04 Blood Type O POSITIVE 09/01/18 13:04 Antibody Screen Negative 09/01/18 13:04 - Hospital Course Hospital Course: Pt evaluated and treated at [facility] from 08/29-09/02. Patient is 4 days s/p arthrodesis of left ankle joint using plate and screws with bone allograft. Pt admitted with post-op nausea, vomiting, dizziness. Patient's symptoms were treated with antiemetics, and pain was controlled. Patient was noted to have anemia with hgb of 7.5 and was transfused 1U PRBC with no complication. Podiatry has been managing her would. HPI on admission: "(History obtained by chart review due to patient's clinical condition) Patient is a 58 female with a past medical history of arthritis, hyperlipidemia, hypertension and insulin-dependent diabetes who is s/p left ankle fusion. Patient is currently post-op and unable to provide history due to anesthesia. Podiatry requested overnight observation. ROS unattainable due to to patient's clinical condition." Discharge Exam - Head Exam Head Exam: ATRAUMATIC, NORMAL INSPECTION, NORMOCEPHALIC - Eye Exam Eye Exam: EOMI, Normal appearance - ENT Exam ENT Exam: Mucous Membranes Moist, Normal Oropharynx - Neck Exam Neck exam: Normal Inspection - Respiratory Exam Respiratory Exam: Clear to PA & Lateral, NORMAL BREATHING PATTERN, UNREMARKABLE - Cardiovascular Exam Cardiovascular Exam: REGULAR RHYTHM, +S1, +S2. absent: Tachycardia - GI/Abdominal Exam GI & Abdominal Exam: Normal Bowel Sounds, Soft, Unremarkable. absent: Distended, Tenderness - Extremities Exam Extremities exam: normal capillary refill, pedal edema (left distal extremity s/p surgery. Healing well, dressings clean, dry and intact. TTP) - Neurological Exam Neurological exam: Alert, Oriented x3 - Psychiatric Exam Psychiatric exam: Normal Affect, Normal Mood - Skin Skin Exam: Dry, Intact, Normal Color, Warm Discharge Plan - Discharge Medications Prescriptions: Meclizine [Meclizine*] 25 mg PO Q8 7 Days tab Naproxen 500 mg PO TID 7 Days tab - Follow Up Plan Condition: GOOD Disposition: HOME/ ROUTINE Instructions: Diabetic Foot Ulcer (DC), Flu, Adult (DC), Meclizine Additional Instructions: Patient is stable for discharge home. Patient was instructed to take medications prescribed at discharge in addition to home meds. Patient is given a script for Lovenox 40mg sc, #30. Patient should use one syringe daily fr a total of 30 days. Education has been provided to the patient so she can self administer at home. Patient is also being given a script for Naproxen 500mg po TID prn pain. Patient is instructed to take Naproxen 500mg, not more than every 8 hours each day, as needed for pain. Do not take medication on an empty stomach. Patient will also be prescribed meclizine to be take not more often than every 8 hours for dizziness. Patient should follow up with Dr. Belle on Wednesday for outpatient care. Patient was advised of the risks of anticoagulation, and advised to take caution not to endure trauma or bleeds. Patient instructed to return to ED with any uncontrolled or excessive bleeding. Patient advised to return to ED w/ any worsening of symptoms. Referrals: Mindy Belle DPM [Staff Provider] - <Herman Dickey - Last Filed: 09/02/18 15:44> Provider - Provider Date of Admission: 08/29/18 16:21 Attending physician: Herman Dickey DO Hospital Course - Lab Results Lab Results: Micro Results 09/01/18 11:50 Blood-Venous Blood Culture - Preliminary NO GROWTH AFTER 24 HOURS 09/01/18 13:00 Blood-Venous Blood Culture - Preliminary NO GROWTH AFTER 24 HOURS Most Recent Lab Values WBC 8.1 K/uL (4.8-10.8) 09/02/18 11:38 RBC 2.99 Mil/uL (3.80-5.20) L 09/02/18 11:38 Hgb 9.1 g/dL (11.0-16.0) L 09/02/18 11:38 Hct 26.2 % (34.0-47.0) L 09/02/18 11:38 MCV 87.5 fL (81.0-99.0) 09/02/18 11:38 MCH 30.3 pg (27.0-31.0) 09/02/18 11:38 MCHC 34.6 g/dL (33.0-37.0) 09/02/18 11:38 RDW 13.4 % (11.5-14.5) 09/02/18 11:38 Plt Count 211 K/uL (130-400) 09/02/18 11:38 MPV 9.6 fL (7.2-11.7) 09/02/18 11:38 Neut % (Auto) 64.7 % (50.0-75.0) 09/02/18 11:38 Lymph % (Auto) 26.4 % (20.0-40.0) 09/02/18 11:38 [place] % (Auto) 7.8 % (0.0-10.0) 09/02/18 11:38 Eos % (Auto) 0.4 % (0.0-4.0) 09/02/18 11:38 Baso % (Auto) 0.7 % (0.0-2.0) 09/02/18 11:38 Neut # (Auto) 5.2 K/uL (1.8-7.0) 09/02/18 11:38 Lymph # (Auto) 2.1 K/uL (1.0-4.3) 09/02/18 11:38 [place] # (Auto) 0.6 K/uL (0.0-0.8) 09/02/18 11:38 Eos # (Auto) 0.0 K/uL (0.0-0.7) 09/02/18 11:38 Baso # (Auto) 0.1 K/uL (0.0-0.2) 09/02/18 11:38 Sodium 136 mmol/L (132-148) 09/02/18 11:38 Potassium 3.5 mmol/L (3.6-5.2) L 09/02/18 11:38 Chloride 101 mmol/L (98-107) 09/02/18 11:38 Carbon Dioxide 27 mmol/L (22-30) 09/02/18 11:38 Anion Gap 12 (10-20) 09/02/18 11:38 BUN 9 mg/dL (7-17) 09/02/18 11:38 Creatinine 0.6 mg/dL (0.7-1.2) L 09/02/18 11:38 Est GFR ( Amer) > 60 09/02/18 11:38 Est GFR (Non-Af Amer) > 60 09/02/18 11:38 POC Glucose (mg/dL) 210 mg/dL (65-110) H 09/02/18 11:10 Random Glucose 214 mg/dL (65-105) H 09/02/18 11:38 Calcium 8.9 mg/dl (8.6-10.4) 09/02/18 11:38 Phosphorus 2.5 mg/dL (2.5-4.5) 08/31/18 07:17 Magnesium 1.7 mg/dL (1.6-2.3) 08/31/18 07:17 Total Bilirubin 0.9 mg/dL (0.2-1.3) 09/02/18 11:38 AST 47 U/L (14-36) H D 09/02/18 11:38 ALT 49 U/L (9-52) 09/02/18 11:38 Alkaline Phosphatase 249 U/L (38-126) H D 09/02/18 11:38 Troponin I < 0.0120 ng/mL (0.00-0.120) 08/31/18 07:17 Total Protein 6.7 g/dL (6.3-8.3) 09/02/18 11:38 Albumin 3.2 g/dL (3.5-5.0) L 09/02/18 11:38 Globulin 3.5 gm/dL (2.2-3.9) 09/02/18 11:38 Albumin/Globulin Ratio 0.9 (1.0-2.1) L 09/02/18 11:38 Urine Color Straw (YELLOW) 09/02/18 08:18 Urine Clarity Clear (Clear) 09/02/18 08:18 Urine pH 7.0 (5.0-8.0) 09/02/18 08:18 Ur Specific [place] 1.008 (1.003-1.030) 09/02/18 08:18 Urine Protein 1+ mg/dL (NEGATIVE) H 09/02/18 08:18 Urine Glucose (UA) 1+ mg/dL (Normal) 09/02/18 08:18 Urine Ketones Trace mg/dL (NEGATIVE) 09/02/18 08:18 Urine Blood Negative (NEGATIVE) 09/02/18 08:18 Urine Nitrate Negative (NEGATIVE) 09/02/18 08:18 Urine Bilirubin Negative (NEGATIVE) 09/02/18 08:18 Urine Urobilinogen Normal mg/dL (0.2-1.0) 09/02/18 08:18 Ur Leukocyte Esterase Neg Bharati/uL (Negative) 09/02/18 08:18 Urine WBC (Auto) < 1 /hpf (0-5) 09/02/18 08:18 Urine RBC (Auto) < 1 /hpf (0-3) 09/02/18 08:18 Ur Squamous Epith Cells < 1 /hpf (0-5) 09/02/18 08:18 Urine Bacteria Occ (<OCC) H 08/31/18 16:54 Influenza Typ A,B (EIA) Negative for flu a/b (NEGATIVE) 09/01/18 13:04 Blood Type O POSITIVE 09/01/18 13:04 Antibody Screen Negative 09/01/18 13:04 Attending/Attestation - Attestation I have personally seen and examined this patient.: Yes I have fully participated in the care of the patient.: Yes I have reviewed all pertinent clinical information, including history, physical exam and plan: Yes Notes (Text): 09/02/18 15:44 Medical attending: Patient was seen and examined by me while at hemodialysis. Reviewed the above note by the medical office representative and agree with the above note. As mentioned previously the patient is status post left ankle fusion. This was supposed to be a same-day procedure however she was kept overnight she had complaints of dizziness, ongoing abdominal discomfort, and vomiting. Per review of previous medical records she has had several ER admissions for the same thing in the past. Because of the ongoing dizziness and previous visits to the ER for this dizziness we decided to get a head CT without contrast and this was stable did not show anything acute. He also had a CT of the abdomen and pelvis done and suggested that she may have cystitis. A urinalysis was ordered but suggested that the patient might have a UTI. Was not a clean catch. We initially want to start IV Cipro, but we will later notified that the patient developed a small rash after this and we placed the patient on IV aztreonam. It is possible that she did not do well with the anesthesia and IV Dilaudid for pain control and hence her long-standing dizziness has been made worse. Regarding the she felt better after several days. I did see the wound change dressing of the left ankle and it looks clean and dry The patient will have to avoid Percocet, there is also a prescription for naproxen. Also we made it clear to the patient that she should take her Lovenox as well Thank you very much, Herman Dickey
[2018-09-02] MEDS: Sodium Chloride 0.9% 1,000 ML IV SCH (11:01)
[2018-09-02] MEDS: Ferric Sodium Gluconat Complex 125 MG in Sodium Chloride 0.9% 100 ML IVPB SCH (11:10)
[2018-09-02] MEDS ORDERED: Magnesium Citrate Oral SOL (300 ml) PO ONE (11:15)
[2018-09-02] MEDS: Magnesium Citrate Oral SOL (300 ml) PO ONE ×2 (11:27→11:49)
[2018-09-02 12:02] LABS: BASO # 0.1 K/uL (0.0-0.2); BASO % 0.7 % (0.0-2.0); EOS % 0.4 % (0.0-4.0); HEMOGLOBIN 9.1 g/dL (11.0-16.0); LYMPH # 2.1 K/uL (1.0-4.3); LYMPH % 26.4 % (20.0-40.0); MEAN CELL VOLUME 87.5 fL (81.0-99.0); MEAN CORPUSCULAR HEMOGLOBIN 30.3 pg (27.0-31.0); MEAN CORPUSCULAR HGB CONC 34.6 g/dL (33.0-37.0); MEAN PLATELET VOLUME 9.6 fL (7.2-11.7); MONO # 0.6 K/uL (0.0-0.8); MONO % 7.8 % (0.0-10.0); NEUT # 5.2 K/uL (1.8-7.0); NEUT % 64.7 % (50.0-75.0); NRBC % 0.1 % (0.0-2.0); RBC 2.99 Mil/uL (3.80-5.20); RED CELL DISTRIBUTION WIDTH 13.4 % (11.5-14.5); WHITE BLOOD COUNT 8.1 K/uL (4.8-10.8)
[2018-09-02 12:32] LABS: ALB/GLOB RATIO 0.9 (1.0-2.1); ALBUMIN 3.2 g/dL (3.5-5.0); ALT/SGPT 49 U/L (9-52); AST/SGOT 47 U/L (14-36); BLOOD UREA NITROGEN 9 mg/dL (7-17); CALCIUM 8.9 mg/dl (8.6-10.4); GFR NON-AFRICAN AMERICAN > 60
== END 2018-09-02 17:09 | disposition home or self-care (01) | DRG 494 ==
LOC: C.SDS 07:08 → C.3T 16:21 → C.SDS 16:21
PROVIDERS: ADMIT Hospitalist; ATTEND Hospitalist
PROC: 0QRH07Z Replacement of Left Tibia with Autologous Tissue Substitute, Open Approach (ICD-10-PCS; 2018-08-29)
PROC: 0QB70ZZ Excision of Left Upper Femur, Open Approach (ICD-10-PCS; 2018-08-29)
PROC: 0SGG04Z Fusion of Left Ankle Joint with Internal Fixation Device, Open Approach (ICD-10-PCS; principal; 2018-08-29 07:45)
DX: M12.572 Traumatic arthropathy, left ankle and foot (principal); S82.892S Other fracture of left lower leg, sequela; X58.XXXS Exposure to other specified factors, sequela; E10.610 Type 1 diabetes mellitus with diabetic neuropathic arthropathy

== ENCOUNTER 2018-12-26 11:42 | Outpatient (CLI) | payer SELFPAY | END 2018-12-26 11:43 | disposition home or self-care (01) | LOC: C.LAB 11:42 | DX: E11.29 Type 2 diabetes mellitus with other diabetic kidney complication (principal); E78.2 Mixed hyperlipidemia; E03.9 Hypothyroidism, unspecified ==

== ENCOUNTER 2019-01-02 10:54 | Outpatient (CLI) | payer OTHER, SELFPAY | END 2019-01-02 10:55 | disposition home or self-care (01) | LOC: C.MAMMO 10:54 | DX: Z12.31 Encounter for screening mammogram for malignant neoplasm of breast (principal); Z12.11 Encounter for screening for malignant neoplasm of colon ==

== ENCOUNTER 2019-01-23 11:12 | Outpatient (CLI) | payer OTHER | END 2019-01-23 11:13 | disposition home or self-care (01) | LOC: C.RADH 11:12 | DX: Z09 Encounter for follow-up examination after completed treatment for conditions other than malignant neoplasm (principal); Z98.1 Arthrodesis status ==